=== PATIENT | female | born 1950 | race Caucasian/White ===

== ENCOUNTER 2016-08-09 12:31 | Emergency (ER) | payer MEDICARE, OTHER, SELFPAY ==
[~2016-08-09] VITALS: Ht 162.6 cm; Wt 65.3 kg
[2016-08-09] MEDS ORDERED: ONDANSETRON 2MG/ML, 2ML IVPush ONE (13:00)
[2016-08-09] MEDS ORDERED: MAGNESIUM SULFATE 1 GM, THIAMINE 100 MG, FOLIC ACID 1 MG, MVI ADULT 10 ML in SODIUM CHL... IV ONE (13:00)
[2016-08-09] MEDS ORDERED: SODIUM CHLORIDE 0.9% 1,000ML IVBOLUS ONE (13:00)
[2016-08-09] MEDS ORDERED: LORazepam 2 MG/ML, 1ML IVPush ONE (13:00)
[2016-08-09] MEDS ORDERED: SODIUM CHLORIDE FLUSH 10ML SYR IVF ONE (13:00)
[2016-08-09 13:20] LABS: HEMOGLOBIN 15.5 g/dL (11.7-16.4)
[2016-08-09 13:39] LABS: ASPARTATE AMINO TRANSFERASE 21 U/L (15-37); BLOOD UREA NITROGEN 12 mg/dL (7-18)
[2016-08-09] MEDS ORDERED: LORazepam 1MG TABLET ONE (17:39)
[2016-08-09] MEDS ORDERED: BUPR100T11 PO (17:44)
[2016-08-09] MEDS ORDERED: LISI-170 PO (17:45)
[2016-08-09] MEDS ORDERED: ATOR80TA75 PO (17:46)
[2016-08-09] MEDS ORDERED: FLUO60TA PO (17:47)
[2016-08-09] MEDS ORDERED: OXYB5TAB7 PO (17:47)
[2016-08-09] MEDS ORDERED: CETI-237 PO (17:48)
[2016-08-09] MEDS ORDERED: ACAM333T7 PO (17:50)
[2016-08-09] MEDS ORDERED: BUSP7.5T3 PO (17:56)
[2016-08-09] MEDS ORDERED: LORazepam 1MG TABLET PO ONE (18:00)
[2016-08-09 18:31] VITALS: BP 174/97
== END 2016-08-09 18:35 | disposition home or self-care (01) ==
LOC: ED 18:29
DX: F41.1 Generalized anxiety disorder (principal); E78.5 Hyperlipidemia, unspecified
CPT/HCPCS: 36415; 80053; 80307; 85025; 99284; J2060

== ENCOUNTER 2018-09-04 15:25 | Inpatient (IN) | payer MEDICARE, MEDICAID ==
[~2018-09-04] VITALS: Ht 157.5 cm; Wt 61.6 kg
[~2018-09-04 15:25] MED LIST: ACAM333T7 PO; ATOR-2 PO; BUPR100T11 PO; BUSP7.5T3 PO; CETI-237 PO; FLUO60TA PO; LISI-170 PO; OXYB5TAB7 PO
[2018-09-04] MEDS ORDERED: SODIUM CHLORIDE FLUSH 10ML SYR IVF ONE ×2 (16:00→18:00)
[2018-09-04 16:16] LABS: BASOPHILS # (AUTO) 0.01 x10^3/uL (0-0.1); BASOPHILS % (AUTO) 0 % (0-1); EOSINOPHILS # (AUTO) 0.01 x10^3/uL (0-0.4); EOSINOPHILS % (AUTO) 0 % (1-7); LYMPHOCYTES # (AUTO) 0.88 x10^3/uL (1-3.4); LYMPHOCYTES % (AUTO) 12 % (22-44); MD NO; MEAN CORPUSCULAR HEMOGLOBIN 32.1 pg (27.0-34.8); MEAN CORPUSCULAR HGB CONC 33.9 g/dL (32.4-35.8); MEAN CORPUSCULAR VOLUME 94.8 fL (80-100); MEAN PLATELET VOLUME 7.9 fL (7.4-10.4); MONOCYTES # (AUTO) 0.52 x10^3/uL (0.2-0.8); MONOCYTES % (AUTO) 7 % (2-9); NEUTROPHILS # (AUTO) 6.22 x10^3/uL (1.8-6.8); NEUTROPHILS % (AUTO) 81 % (42-75); PLATELET COUNT 211 x10^3/uL (130-400); RED BLOOD COUNT 4.69 x10^6/uL (3.82-5.3)
[2018-09-04 16:29] LABS: ALBUMIN 3.5 g/dL (3.4-5.0); ANION GAP 19 mmol/L (5-15); CALCIUM 8.4 mg/dL (8.5-10.1); CHLORIDE 102 mmol/L (98-107)
[2018-09-04 16:33] LABS: ALANINE AMINOTRANSFERASE 268 U/L (12-78); ALKALINE PHOSPHATASE 68 U/L (45-117); BILIRUBIN,TOTAL 0.9 mg/dL (0.2-1.0); CREATININE 0.82 mg/dL (0.55-1.02); TOTAL PROTEIN 6.9 g/dL (6.4-8.2)
[2018-09-04] MEDS ORDERED: LORazepam 1MG TABLET ONE (17:14)
[2018-09-04] MEDS ORDERED: LORazepam 1MG TABLET PO ONE (17:30)
[2018-09-04] MEDS ORDERED: THIAMINE 100MG TABLET ONE (18:00)
[2018-09-04] MEDS ORDERED: THIAMINE 100MG TABLET PO ONE (18:00)
[2018-09-04] MEDS ORDERED: SODIUM CHLORIDE 0.9% 1,000ML IVBOLUS ONE (18:00)
[2018-09-04] MEDS ORDERED: LORazepam 2 MG/ML, 1ML ONE ×4 (18:01→19:52)
[2018-09-04] MEDS: LORazepam 2 MG/ML, 1ML IVPush PRN ×5 (18:24→20:49)
--- NOTE | 2018-09-04 18:30 | NUR ---
LATE NOTE ENTRY FOR 173: Pt presents to ED transported by her brother Titus Blake (who she lives with) with c/o tremours and "detoxing off of alcohol." Pt is AOX4, has visible tremors from doorway, skin is pink, warm, and dry, and pt denies nausea or vomiting. Pt denies chest pain, trauma, shortness of breath, or seizure. Pt denies seizure when she has stopped drinking alcohol. Pt's brother states she had been through detox five years ago and was sober, but in last three years began drinking again, and an increase in drinking in the last "few months". Pt states she wants help to stop drinking. Pt connected to conveyor monitor, NIBP, and continous pulse ox. PIV established. Medications provided per EMAR. Pt appreciative. Bedside rails up for safety measures. Call light within reach. Pt states, "I drink a large bottle of vodka and finish it within three days."
--- NOTE | 2018-09-04 18:34 | NUR ---
Provided medications per EMAR. PIV fluids infusing per EMAR. NADN. Pt remains connected to NIBP, continous pulse ox, and rn cardiac. Placed pt on 2L oygen via NC due to SPO2% around 85-88%. On 2L NC pt is at 95%. Pt trying to rest with eyes closed at bedside. Tremors occuring only when patient wakes up and attempts to move. When patient rests tremors will discontinue.
--- NOTE | 2018-09-04 18:58 | NUR ---
Provided bedside report to LARON Cruz. All questions answered. LARON Cruz to assume care of pt.
--- NOTE | 2018-09-04 19:00 | NUR ---
RECEIVED BS REPORT FROM LARON RODRIGUEZ TO ASSUME PT. CARE. PT. RESTING ON GURNEY; REMAINS VERY TREMULOUS. HR IMPROVED. IVF COMPLETED. CALL LIGHT IN REACH. ALL MONITORS IN PLACE. ALL SAFETY MEASURES OBSERVED.
--- NOTE | 2018-09-04 19:34 | NUR ---
THIS RN ENTERED ROOM PT. WAS SHOUTING FOR HELP. PT. REQUESTING TO WALK TO . PT. VERY TERMULOUS AND UNABLE TO EVEN STAND AT TO TRANSFER TO COMMODE. PT. PLACED ON BED SOLIZ AND DR. OLVERA WAS BACK IN TO EVAL PT. AND DISCUSS PLAN FOR ADMISSION. PT. MEDICATED PER JUN AND ALL MONITORS REPLACED. CALL LIGHT IN REACH AND PT. RE-EDUCATED ON USE OF CALL LIGHT FOR ASSISTANCE. FAMILY ARRIVED AT FOR SUPPORT. ALL SAFETY MEASUERS OBSERVED.
--- NOTE | 2018-09-04 19:58 | NUR ---
PT. REMAINS VERY TERMULOUS. VS UPDATED AND PT. MEDICATED PER JUN. [facility] IN TO EVAL PT. FOR ADMISSION. PT. HAS ALL MONITORS IN PLACE. CALL LIGHT IN REACH. ALL SAFETY MEASUERS OBSERVED.
--- NOTE | 2018-09-04 20:05 | NUR ---
REPORT TO LARON LOVE. FLOOR READY FOR PT. TRANSPORT.
[2018-09-04] MEDS ORDERED: BISACODYL 10 MG SUPP PR PRN (20:30)
[2018-09-04] MEDS ORDERED: ONDANSETRON 2MG/ML, 2ML IVPush PRN (20:30)
[2018-09-04] MEDS ORDERED: POLYETHYLENE GLYCOL 17 GM PACKET PO PRN (20:30)
[2018-09-04] MEDS ORDERED: hydrALAzine 20 MG/ML, 1ML IVPush PRN (20:30)
[2018-09-04 20:54] VITALS: BP 149/81
[2018-09-04] MEDS: ATORVASTATIN 40 MG TABLET PO SCH (21:56)
[2018-09-04] MEDS: HEPARIN 5,000 UNITS/ML, 1ML SQ SCH (21:57)
[2018-09-04] MEDS: LISINOPRIL 20 MG TABLET PO SCH (21:57)
[2018-09-04] MEDS: BUSPIRONE 10 MG TABLET PO SCH (21:57)
[2018-09-04] MEDS: CHLORDIAZEPOXIDE 25 MG CAPSULE PO PRN (22:01)
[2018-09-05] MEDS: LORazepam 2 MG/ML, 1ML IVPush PRN ×3 (00:26→06:06)
[2018-09-05 02:21] VITALS: BP 148/90
[2018-09-05] MEDS: ACETAMINOPHEN 325 MG TABLET PO PRN (03:54)
[2018-09-05] MEDS: HEPARIN 5,000 UNITS/ML, 1ML SQ SCH ×3 (04:49→20:59)
[2018-09-05] MEDS: CHLORDIAZEPOXIDE 25 MG CAPSULE PO PRN (04:50)
[2018-09-05 04:52] LABS: BASOPHILS # (AUTO) 0.02 x10^3/uL (0-0.1); BASOPHILS % (AUTO) 0 % (0-1); EOSINOPHILS # (AUTO) 0.03 x10^3/uL (0-0.4); EOSINOPHILS % (AUTO) 0 % (1-7); LYMPHOCYTES # (AUTO) 1.01 x10^3/uL (1-3.4); LYMPHOCYTES % (AUTO) 14 % (22-44); MD NO; MEAN CORPUSCULAR HEMOGLOBIN 32.3 pg (27.0-34.8); MEAN CORPUSCULAR HGB CONC 34.3 g/dL (32.4-35.8); MEAN CORPUSCULAR VOLUME 94.4 fL (80-100); MEAN PLATELET VOLUME 7.9 fL (7.4-10.4); MONOCYTES # (AUTO) 0.55 x10^3/uL (0.2-0.8); MONOCYTES % (AUTO) 8 % (2-9); NEUTROPHILS # (AUTO) 5.53 x10^3/uL (1.8-6.8); NEUTROPHILS % (AUTO) 77 % (42-75); PLATELET COUNT 173 x10^3/uL (130-400); RED BLOOD COUNT 4.09 x10^6/uL (3.82-5.3); RED CELL DISTRIBUTION WIDTH 14.9 % (9.6-15.2)
[2018-09-05 05:01] LABS: ALBUMIN 2.8 g/dL (3.4-5.0); ANION GAP 12 mmol/L (5-15); CALCIUM 8.1 mg/dL (8.5-10.1); CHLORIDE 103 mmol/L (98-107)
[2018-09-05 05:05] LABS: ALANINE AMINOTRANSFERASE 185 U/L (12-78); ALKALINE PHOSPHATASE 54 U/L (45-117); BILIRUBIN,TOTAL 1.1 mg/dL (0.2-1.0); CREATININE 0.67 mg/dL (0.55-1.02); TOTAL PROTEIN 5.7 g/dL (6.4-8.2)
[2018-09-05] MEDS ORDERED: LORazepam 2 MG/ML, 1ML IV PRN ×3 (07:30)
[2018-09-05] MEDS ORDERED: LORazepam 1MG TABLET PO PRN ×3 (07:30)
[2018-09-05 08:37] VITALS: BP 165/106
[2018-09-05] MEDS: SENNA/DOCUSATE TABLET PO SCH (09:00)
[2018-09-05] MEDS: BUSPIRONE 10 MG TABLET PO SCH ×3 (09:59→20:59)
[2018-09-05] MEDS: MULTIVITAMINS/MINERALS TABLET PO SCH (09:59)
[2018-09-05] MEDS: FOLIC ACID 1 MG TABLET PO SCH (09:59)
[2018-09-05] MEDS: THIAMINE 100MG TABLET PO SCH ×2 (09:59→20:59)
[2018-09-05] MEDS: LISINOPRIL 20 MG TABLET PO SCH ×2 (09:59→20:59)
[2018-09-05] MEDS: LORazepam 0.5MG TABLET PO PRN (09:59)
[2018-09-05] MEDS: FLUOXETINE HCL 20 MG CAPSULE PO SCH (09:59)
[2018-09-05] MEDS: CHLORDIAZEPOXIDE 25 MG CAPSULE PO SCH ×3 (10:00→20:59)
[2018-09-05 13:20] VITALS: BP 166/99
[2018-09-05] MEDS: LORazepam 2 MG/ML, 1ML IV PRN ×2 (14:40→20:02)
[2018-09-05] MEDS: SODIUM CHLORIDE 0.45% 1,000 ML IV SCH ×2 (14:42→21:00)
[2018-09-05 18:24] VITALS: BP 185/96
[2018-09-05] MEDS ORDERED: MAGNESIUM SULFATE 4 GM in SODIUM CHLORIDE 0.9% 100 ML IV ONE (20:30)
[2018-09-05] MEDS: ATORVASTATIN 40 MG TABLET PO SCH (21:00)
[2018-09-05 22:22] VITALS: BP 152/84
[2018-09-06 00:04] VITALS: BP 159/91
[2018-09-06] MEDS: SODIUM CHLORIDE 0.45% 1,000 ML IV SCH ×2 (04:09→13:30)
[2018-09-06] MEDS: LORazepam 1MG TABLET PO PRN ×2 (04:09→18:04)
[2018-09-06] MEDS: HEPARIN 5,000 UNITS/ML, 1ML SQ SCH ×3 (04:10→20:26)
[2018-09-06 05:12] LABS: BASOPHILS # (AUTO) 0.01 x10^3/uL (0-0.1); BASOPHILS % (AUTO) 0 % (0-1); EOSINOPHILS # (AUTO) 0.04 x10^3/uL (0-0.4); EOSINOPHILS % (AUTO) 1 % (1-7); LYMPHOCYTES # (AUTO) 0.72 x10^3/uL (1-3.4); LYMPHOCYTES % (AUTO) 9 % (22-44); MD NO; MEAN CORPUSCULAR HEMOGLOBIN 32.5 pg (27.0-34.8); MEAN CORPUSCULAR HGB CONC 34.4 g/dL (32.4-35.8); MEAN CORPUSCULAR VOLUME 94.5 fL (80-100); MEAN PLATELET VOLUME 8.2 fL (7.4-10.4); MONOCYTES # (AUTO) 0.72 x10^3/uL (0.2-0.8); MONOCYTES % (AUTO) 9 % (2-9); NEUTROPHILS # (AUTO) 6.84 x10^3/uL (1.8-6.8); NEUTROPHILS % (AUTO) 82 % (42-75); PLATELET COUNT 170 x10^3/uL (130-400); RED BLOOD COUNT 4.33 x10^6/uL (3.82-5.3); RED CELL DISTRIBUTION WIDTH 14.8 % (9.6-15.2)
[2018-09-06 05:21] LABS: CHLORIDE 95 mmol/L (98-107)
[2018-09-06 05:31] LABS: ALANINE AMINOTRANSFERASE 134 U/L (12-78); ALBUMIN 2.8 g/dL (3.4-5.0); ALKALINE PHOSPHATASE 62 U/L (45-117); ANION GAP 13 mmol/L (5-15); BILIRUBIN,TOTAL 0.9 mg/dL (0.2-1.0); CALCIUM 7.8 mg/dL (8.5-10.1); CREATININE 0.53 mg/dL (0.55-1.02); TOTAL PROTEIN 5.8 g/dL (6.4-8.2)
[2018-09-06] MEDS ORDERED: POTASSIUM CHLORIDE 20 MEQ TAB.ER.PRT PO ONE ×2 (07:00→11:00)
[2018-09-06] MEDS ORDERED: POTASSIUM CHLORIDE 20 MEQ PACKET PO ONE (07:30)
[2018-09-06] MEDS ORDERED: SODIUM CHLORIDE 0.45% 1,000 ML IV SCH (08:00)
[2018-09-06] MEDS: THIAMINE 100MG TABLET PO SCH ×2 (08:54→20:23)
[2018-09-06] MEDS: BUSPIRONE 10 MG TABLET PO SCH ×2 (08:54→18:04)
[2018-09-06] MEDS: FLUOXETINE HCL 20 MG CAPSULE PO SCH (08:54)
[2018-09-06] MEDS: FOLIC ACID 1 MG TABLET PO SCH (08:54)
[2018-09-06] MEDS: CHLORDIAZEPOXIDE 25 MG CAPSULE PO SCH ×2 (08:54→20:30)
[2018-09-06] MEDS: LISINOPRIL 20 MG TABLET PO SCH ×2 (08:55→20:24)
[2018-09-06] MEDS: MULTIVITAMINS/MINERALS TABLET PO SCH (08:55)
[2018-09-06] MEDS: SENNA/DOCUSATE TABLET PO SCH (09:00)
[2018-09-06 09:06] VITALS: BP 133/77
[2018-09-06 15:24] VITALS: BP 105/75
[2018-09-06] MEDS ORDERED: SODIUM CHLORIDE 0.9% 1,000 ML IV SCH (17:30)
[2018-09-06] MEDS: POTASSIUM CHLORIDE 20 MEQ, MAGNESIUM SULFATE 1 GM, FOLIC ACID 1 MG, THIAMINE 200 MG, MV... IV SCH (18:04)
[2018-09-06 20:15] VITALS: BP 152/95
[2018-09-06] MEDS: ATORVASTATIN 40 MG TABLET PO SCH (20:23)
[2018-09-06] MEDS: LORazepam 2 MG/ML, 1ML IV PRN (21:14)
[2018-09-07] MEDS: BUSPIRONE 10 MG TABLET PO SCH ×4 (00:03→21:15)
[2018-09-07] MEDS: LORazepam 2 MG/ML, 1ML IV PRN ×5 (02:02→22:28)
[2018-09-07 03:03] VITALS: BP 138/82
[2018-09-07] MEDS: HEPARIN 5,000 UNITS/ML, 1ML SQ SCH ×3 (05:26→21:16)
[2018-09-07] MEDS: SENNA/DOCUSATE TABLET PO SCH (09:00)
[2018-09-07] MEDS: LORazepam 0.5MG TABLET PO PRN ×2 (09:29→14:18)
[2018-09-07] MEDS: FLUOXETINE HCL 20 MG CAPSULE PO SCH (09:30)
[2018-09-07] MEDS: THIAMINE 100MG TABLET PO SCH ×2 (09:30→21:15)
[2018-09-07] MEDS: FOLIC ACID 1 MG TABLET PO SCH (09:30)
[2018-09-07] MEDS: MULTIVITAMINS/MINERALS TABLET PO SCH (09:30)
[2018-09-07] MEDS: CHLORDIAZEPOXIDE 25 MG CAPSULE PO SCH ×3 (09:30→21:15)
[2018-09-07 09:33] VITALS: BP 148/87
[2018-09-07] MEDS: LISINOPRIL 20 MG TABLET PO SCH ×2 (10:08→21:15)
[2018-09-07 12:51] VITALS: BP 136/88
[2018-09-07] MEDS ORDERED: SODIUM CHLORIDE 0.9% 1,000 ML IV SCH (17:30)
[2018-09-07] MEDS: POTASSIUM CHLORIDE 20 MEQ, MAGNESIUM SULFATE 1 GM, FOLIC ACID 1 MG, THIAMINE 200 MG, MV... IV SCH (18:21)
[2018-09-07] MEDS: LORazepam 1MG TABLET PO PRN (18:21)
[2018-09-07 19:41] VITALS: BP 153/92
[2018-09-07] MEDS: ATORVASTATIN 40 MG TABLET PO SCH (21:15)
[2018-09-08 01:13] VITALS: BP 152/91
[2018-09-08] MEDS: LORazepam 2 MG/ML, 1ML IV PRN ×4 (01:19→11:05)
[2018-09-08] MEDS: HEPARIN 5,000 UNITS/ML, 1ML SQ SCH ×3 (05:12→21:45)
[2018-09-08 07:22] LABS: ALBUMIN 2.5 g/dL (3.4-5.0); ANION GAP 9 mmol/L (5-15); CHLORIDE 102 mmol/L (98-107)
[2018-09-08 07:24] LABS: CREATININE 0.55 mg/dL (0.55-1.02)
[2018-09-08 07:25] LABS: ALANINE AMINOTRANSFERASE 110 U/L (12-78); ALKALINE PHOSPHATASE 63 U/L (45-117); BILIRUBIN,TOTAL 0.5 mg/dL (0.2-1.0); TOTAL PROTEIN 5.3 g/dL (6.4-8.2)
[2018-09-08] MEDS: POTASSIUM CHLORIDE 20 MEQ TAB.ER.PRT PO SCH ×2 (08:00→16:45)
[2018-09-08 08:33] VITALS: BP 143/81
[2018-09-08] MEDS: MULTIVITAMINS/MINERALS TABLET PO SCH (09:00)
[2018-09-08] MEDS: FOLIC ACID 1 MG TABLET PO SCH (09:00)
[2018-09-08] MEDS: SENNA/DOCUSATE TABLET PO SCH (09:00)
[2018-09-08] MEDS: THIAMINE 100MG TABLET PO SCH (09:00)
[2018-09-08] MEDS: POTASSIUM CHLORIDE 20 MEQ, MAGNESIUM SULFATE 1 GM, THIAMINE 200 MG, FOLIC ACID 1 MG, MV... IV SCH (10:16)
[2018-09-08] MEDS: BUSPIRONE 10 MG TABLET PO SCH ×3 (11:02→21:45)
[2018-09-08] MEDS: LISINOPRIL 20 MG TABLET PO SCH ×2 (11:02→21:46)
[2018-09-08] MEDS: CHLORDIAZEPOXIDE 25 MG CAPSULE PO SCH ×3 (11:03→21:46)
[2018-09-08] MEDS: FLUOXETINE HCL 20 MG CAPSULE PO SCH (11:03)
[2018-09-08 14:12] LABS: THYROID STIMULATING HORMONE 1.08 mIU/L (0.358-3.740)
[2018-09-08 14:14] VITALS: BP 150/87
--- NOTE | 2018-09-08 16:47 | NUR ---
REC: Regular diet with thin liquids Addendum: 09/08/18 at 1647 by Stephanie MERCHANT Amended: Links added.
[2018-09-08 20:36] VITALS: BP 120/76
[2018-09-08] MEDS: ATORVASTATIN 40 MG TABLET PO SCH (21:46)
[2018-09-09 02:25] VITALS: BP 137/76
[2018-09-09 03:45] LABS: MICROSCOPIC INDICATED
[2018-09-09 03:51] LABS: CULTURE INDICATED? YES
[2018-09-09 04:50] LABS: ALANINE AMINOTRANSFERASE 115 U/L (12-78); ALBUMIN 2.5 g/dL (3.4-5.0); ANION GAP 7 mmol/L (5-15); CALCIUM 8.3 mg/dL (8.5-10.1); CHLORIDE 106 mmol/L (98-107); CREATININE 0.66 mg/dL (0.55-1.02)
[2018-09-09 04:53] LABS: ALKALINE PHOSPHATASE 64 U/L (45-117); BILIRUBIN,TOTAL 0.4 mg/dL (0.2-1.0); TOTAL PROTEIN 5.4 g/dL (6.4-8.2)
[2018-09-09] MEDS: HEPARIN 5,000 UNITS/ML, 1ML SQ SCH (05:44)
[2018-09-09 08:00] VITALS: BP 125/84
[2018-09-09] MEDS: ENOXAPARIN 40 MG/0.4 ML SQ SCH (08:59)
[2018-09-09] MEDS: CHLORDIAZEPOXIDE 25 MG CAPSULE PO SCH ×4 (08:59→22:35)
[2018-09-09] MEDS: BUSPIRONE 10 MG TABLET PO SCH ×3 (08:59→20:26)
[2018-09-09] MEDS: FLUOXETINE HCL 20 MG CAPSULE PO SCH (09:00)
[2018-09-09] MEDS: SENNA/DOCUSATE TABLET PO SCH (09:00)
[2018-09-09] MEDS: LISINOPRIL 20 MG TABLET PO SCH ×2 (09:00→20:27)
[2018-09-09] MEDS: POTASSIUM CHLORIDE 20 MEQ TAB.ER.PRT PO SCH ×2 (09:00→17:00)
[2018-09-09 10:38] LABS: CLOSTRIDIUM DIFFICILE ANTIGEN NEGATIVE; CLOSTRIDIUM DIFFICILE TOXIN NEGATIVE (Negative)
[2018-09-09] MEDS: POTASSIUM CHLORIDE 20 MEQ, MAGNESIUM SULFATE 1 GM, THIAMINE 200 MG, FOLIC ACID 1 MG, MV... IV SCH (11:03)
[2018-09-09] MEDS ORDERED: LOPERAMIDE 2 MG CAPSULE PO PRN (12:00)
[2018-09-09] MEDS: MULTIVITAMIN 1 TABLET PO SCH (13:04)
[2018-09-09] MEDS: THIAMINE 100MG TABLET PO SCH (13:04)
[2018-09-09] MEDS: FOLIC ACID 1 MG TABLET PO SCH (13:04)
[2018-09-09 13:10] VITALS: BP 141/89
[2018-09-09 19:45] VITALS: BP 123/78
[2018-09-09] MEDS: ATORVASTATIN 40 MG TABLET PO SCH (20:26)
[2018-09-10] MEDS: ACETAMINOPHEN 325 MG TABLET PO PRN ×2 (00:35→20:06)
[2018-09-10 02:20] VITALS: BP 146/82
[2018-09-10 07:15] VITALS: BP 137/82
[2018-09-10] MEDS: FLUOXETINE HCL 20 MG CAPSULE PO SCH (08:45)
[2018-09-10] MEDS: POTASSIUM CHLORIDE 20 MEQ TAB.ER.PRT PO SCH ×2 (08:45→17:53)
[2018-09-10] MEDS: LISINOPRIL 20 MG TABLET PO SCH ×2 (08:45→20:05)
[2018-09-10] MEDS: ENOXAPARIN 40 MG/0.4 ML SQ SCH (08:45)
[2018-09-10] MEDS: BUSPIRONE 10 MG TABLET PO SCH ×3 (08:45→20:06)
[2018-09-10] MEDS: MULTIVITAMIN 1 TABLET PO SCH (08:46)
[2018-09-10] MEDS: THIAMINE 100MG TABLET PO SCH (08:46)
[2018-09-10] MEDS: FOLIC ACID 1 MG TABLET PO SCH (08:46)
[2018-09-10] MEDS: SENNA/DOCUSATE TABLET PO SCH (08:47)
[2018-09-10 13:50] VITALS: BP 135/70
[2018-09-10] MEDS ORDERED: LORazepam 0.5MG TABLET PO PRN (14:30)
[2018-09-10] MEDS ORDERED: CEFTRIAXONE PMX 1GM/50ML 50 ML IV SCH (15:00)
[2018-09-10 19:25] VITALS: BP 137/82
[2018-09-10] MEDS: LORazepam 0.5MG TABLET PO PRN (20:06)
[2018-09-10] MEDS: ATORVASTATIN 40 MG TABLET PO SCH (20:06)
[2018-09-11 01:23] VITALS: BP 154/92
[2018-09-11] MEDS: LORazepam 0.5MG TABLET PO PRN ×3 (03:42→19:10)
[2018-09-11] MEDS: ENOXAPARIN 40 MG/0.4 ML SQ SCH (07:48)
[2018-09-11] MEDS: CEFDINIR 300 MG CAPSULE PO SCH ×2 (07:48→21:15)
[2018-09-11] MEDS: BUSPIRONE 10 MG TABLET PO SCH ×3 (07:48→21:15)
[2018-09-11] MEDS: THIAMINE 100MG TABLET PO SCH (07:49)
[2018-09-11] MEDS: ACETAMINOPHEN 325 MG TABLET PO PRN ×2 (07:49→22:41)
[2018-09-11] MEDS: FOLIC ACID 1 MG TABLET PO SCH (07:49)
[2018-09-11] MEDS: LISINOPRIL 20 MG TABLET PO SCH ×2 (07:49→21:14)
[2018-09-11] MEDS: MULTIVITAMIN 1 TABLET PO SCH (07:49)
[2018-09-11] MEDS: SENNA/DOCUSATE TABLET PO SCH (07:49)
[2018-09-11] MEDS: FLUOXETINE HCL 20 MG CAPSULE PO SCH (07:49)
[2018-09-11] MEDS: POTASSIUM CHLORIDE 20 MEQ TAB.ER.PRT PO SCH ×2 (07:49→16:11)
[2018-09-11 08:17] VITALS: BP 148/88
[2018-09-11 12:44] VITALS: BP 132/83
[2018-09-11 18:36] VITALS: BP 136/90
[2018-09-11] MEDS: ATORVASTATIN 40 MG TABLET PO SCH (21:14)
[2018-09-12 01:58] VITALS: BP 136/88
[2018-09-12 06:47] VITALS: BP 131/83
[2018-09-12] MEDS: ENOXAPARIN 40 MG/0.4 ML SQ SCH (07:50)
[2018-09-12] MEDS: CEFDINIR 300 MG CAPSULE PO SCH ×2 (07:51→19:56)
[2018-09-12] MEDS: LISINOPRIL 20 MG TABLET PO SCH ×2 (07:51→19:56)
[2018-09-12] MEDS: SENNA/DOCUSATE TABLET PO SCH (07:51)
[2018-09-12] MEDS: FLUOXETINE HCL 20 MG CAPSULE PO SCH (07:51)
[2018-09-12] MEDS: LORazepam 0.5MG TABLET PO PRN ×2 (07:51→14:32)
[2018-09-12] MEDS: THIAMINE 100MG TABLET PO SCH (07:51)
[2018-09-12] MEDS: MULTIVITAMIN 1 TABLET PO SCH (07:51)
[2018-09-12] MEDS: FOLIC ACID 1 MG TABLET PO SCH (07:51)
[2018-09-12] MEDS: BUSPIRONE 10 MG TABLET PO SCH ×3 (07:51→19:56)
[2018-09-12] MEDS ORDERED: POTASSIUM CHLORIDE 20 MEQ TAB.ER.PRT PO SCH (09:00)
[2018-09-12 12:24] VITALS: BP 157/97
[2018-09-12 18:30] VITALS: BP 121/76
[2018-09-12] MEDS: ATORVASTATIN 40 MG TABLET PO SCH (19:56)
[2018-09-13 01:08] VITALS: BP 147/90
[2018-09-13 07:13] VITALS: BP 162/91
[2018-09-13] MEDS: SENNA/DOCUSATE TABLET PO SCH (09:00)
[2018-09-13] MEDS: LISINOPRIL 20 MG TABLET PO SCH ×2 (09:13→20:01)
[2018-09-13] MEDS: BUSPIRONE 10 MG TABLET PO SCH ×3 (09:13→20:01)
[2018-09-13] MEDS: MULTIVITAMIN 1 TABLET PO SCH (09:13)
[2018-09-13] MEDS: FLUOXETINE HCL 20 MG CAPSULE PO SCH (09:13)
[2018-09-13] MEDS: AMLODIPINE 5 MG TABLET PO SCH ×2 (09:13→20:01)
[2018-09-13] MEDS: CEFDINIR 300 MG CAPSULE PO SCH ×2 (09:13→20:01)
[2018-09-13] MEDS: FOLIC ACID 1 MG TABLET PO SCH (09:14)
[2018-09-13] MEDS: ENOXAPARIN 40 MG/0.4 ML SQ SCH (09:14)
[2018-09-13] MEDS: THIAMINE 100MG TABLET PO SCH (09:14)
[2018-09-13 12:15] VITALS: BP 157/83
[2018-09-13] MEDS ORDERED: CETIRIZINE 10 MG TABLET PO PRN (12:30)
[2018-09-13] MEDS: LORazepam 0.5MG TABLET PO PRN ×2 (13:17→20:57)
[2018-09-13 19:02] VITALS: BP 130/76
[2018-09-13] MEDS: ATORVASTATIN 40 MG TABLET PO SCH (20:01)
[2018-09-14 00:36] VITALS: BP 150/82
[2018-09-14] MEDS: ACETAMINOPHEN 325 MG TABLET PO PRN (01:50)
[2018-09-14] MEDS: LORazepam 0.5MG TABLET PO PRN ×4 (03:14→23:40)
[2018-09-14 06:44] LABS: CREATININE 0.62 mg/dL (0.55-1.02)
[2018-09-14 07:38] VITALS: BP 164/82
[2018-09-14] MEDS: ENOXAPARIN 40 MG/0.4 ML SQ SCH (08:31)
[2018-09-14] MEDS: FLUOXETINE HCL 20 MG CAPSULE PO SCH (08:32)
[2018-09-14] MEDS: CEFDINIR 300 MG CAPSULE PO SCH ×2 (08:32→20:39)
[2018-09-14] MEDS: MULTIVITAMIN 1 TABLET PO SCH (08:32)
[2018-09-14] MEDS: AMLODIPINE 5 MG TABLET PO SCH ×2 (08:32→20:39)
[2018-09-14] MEDS: LISINOPRIL 20 MG TABLET PO SCH ×2 (08:32→20:38)
[2018-09-14] MEDS: FOLIC ACID 1 MG TABLET PO SCH (08:32)
[2018-09-14] MEDS: THIAMINE 100MG TABLET PO SCH (08:32)
[2018-09-14] MEDS: SENNA/DOCUSATE TABLET PO SCH (08:33)
[2018-09-14] MEDS: BUSPIRONE 10 MG TABLET PO SCH ×3 (08:34→20:38)
[2018-09-14 13:15] VITALS: BP 134/77
[2018-09-14 20:25] VITALS: BP 150/84
[2018-09-14] MEDS: ATORVASTATIN 40 MG TABLET PO SCH (20:38)
[2018-09-15 00:09] VITALS: BP 163/95
[2018-09-15] MEDS: LORazepam 0.5MG TABLET PO PRN ×3 (07:15→22:55)
[2018-09-15] MEDS: ENOXAPARIN 40 MG/0.4 ML SQ SCH (08:58)
[2018-09-15] MEDS: MULTIVITAMIN 1 TABLET PO SCH (08:58)
[2018-09-15] MEDS: FOLIC ACID 1 MG TABLET PO SCH (08:58)
[2018-09-15] MEDS: FLUOXETINE HCL 20 MG CAPSULE PO SCH (08:58)
[2018-09-15] MEDS: THIAMINE 100MG TABLET PO SCH (08:58)
[2018-09-15] MEDS: CEFDINIR 300 MG CAPSULE PO SCH ×2 (08:58→21:20)
[2018-09-15] MEDS: LISINOPRIL 20 MG TABLET PO SCH ×2 (08:58→21:20)
[2018-09-15] MEDS: BUSPIRONE 10 MG TABLET PO SCH ×3 (08:58→21:20)
[2018-09-15] MEDS: AMLODIPINE 5 MG TABLET PO SCH ×2 (08:58→21:20)
[2018-09-15] MEDS: HYDROCHLOROTHIAZIDE 25 MG TABLET PO SCH (08:58)
[2018-09-15] MEDS: SENNA/DOCUSATE TABLET PO SCH (08:58)
[2018-09-15 09:49] VITALS: BP 115/73
[2018-09-15 13:44] VITALS: BP 119/77
[2018-09-15 18:34] VITALS: BP 119/75
[2018-09-15 21:19] VITALS: BP 122/79
[2018-09-15] MEDS: ATORVASTATIN 40 MG TABLET PO SCH (21:20)
[2018-09-16] MEDS: ACETAMINOPHEN 325 MG TABLET PO PRN (00:20)
[2018-09-16 03:13] VITALS: BP 139/80
[2018-09-16] MEDS ORDERED: AMLO-150 PO (07:19)
[2018-09-16] MEDS ORDERED: MULT1TAB60 PO (07:19)
[2018-09-16] MEDS ORDERED: CEFD300C37 PO (07:19)
[2018-09-16] MEDS ORDERED: THIA100T67 PO (07:19)
[2018-09-16] MEDS ORDERED: FOLI-17 PO (07:19)
[2018-09-16 07:35] VITALS: BP 157/90
[2018-09-16] MEDS: SENNA/DOCUSATE TABLET PO SCH (07:39)
[2018-09-16] MEDS: MULTIVITAMIN 1 TABLET PO SCH (09:24)
[2018-09-16] MEDS: BUSPIRONE 10 MG TABLET PO SCH (09:24)
[2018-09-16] MEDS: CEFDINIR 300 MG CAPSULE PO SCH (09:24)
[2018-09-16] MEDS: THIAMINE 100MG TABLET PO SCH (09:24)
[2018-09-16] MEDS: AMLODIPINE 5 MG TABLET PO SCH (09:24)
[2018-09-16] MEDS: HYDROCHLOROTHIAZIDE 25 MG TABLET PO SCH (09:24)
[2018-09-16] MEDS: LISINOPRIL 20 MG TABLET PO SCH (09:24)
[2018-09-16] MEDS: FLUOXETINE HCL 20 MG CAPSULE PO SCH (09:24)
[2018-09-16] MEDS: FOLIC ACID 1 MG TABLET PO SCH (09:24)
[2018-09-16] MEDS: ENOXAPARIN 40 MG/0.4 ML SQ SCH (09:25)
[2018-09-16] MEDS: LORazepam 0.5MG TABLET PO PRN (09:52)
== END 2018-09-16 13:15 | disposition home or self-care (01) | DRG 872 ==
LOC: ED 18:31 → EDIP 20:02 → 4EST 20:39 → 4WST 09-08 02:10 → 4EST 09-08 02:11
PROVIDERS: ADMIT Internal Medicine; ATTEND Internal Medicine
DX: A41.9 Sepsis, unspecified organism (principal); N39.0 Urinary tract infection, site not specified; E87.2 Acidosis; E87.1 Hypo-osmolality and hyponatremia; F10.230 Alcohol dependence with withdrawal, uncomplicated; K70.10 Alcoholic hepatitis without ascites; R00.0 Tachycardia, unspecified; I10 Essential (primary) hypertension; F32.9 Major depressive disorder, single episode, unspecified; E87.6 Hypokalemia; B96.20 Unspecified Escherichia coli [E. coli] as the cause of diseases classified elsewhere; E11.9 Type 2 diabetes mellitus without complications; E78.5 Hyperlipidemia, unspecified; E83.42 Hypomagnesemia; E86.0 Dehydration; F10.220 Alcohol dependence with intoxication, uncomplicated; Y90.9 Presence of alcohol in blood, level not specified; F41.9 Anxiety disorder, unspecified; G25.0 Essential tremor; Z51.5 Encounter for palliative care; Z87.891 Personal history of nicotine dependence; Z91.81 History of falling; Z90.89 Acquired absence of other organs
CPT/HCPCS: 36415; 71045; 80053; 80074; 80307; 81001; 82140; 82565; 82607; 83735; 84100; 84443; 85025; 87040; 87077; 87086; 87186; 87324; 93005; 99285; G0378; J0696; J1644; J1650; J3411; J3475; J3480; 92522-GN; J0360; J2060; J7030; J7121

== ENCOUNTER 2019-09-26 21:54 | Observation (INO) | payer MEDICARE, MEDICAID ==
[~2019-09-26] VITALS: Ht 160 cm; Wt 59.3 kg
[~2019-09-26 21:54] MED LIST changes: +AMLO-150 PO; +CEFD300C37 PO; +FOLI-17 PO; +MULT1TAB60 PO; +OXYB5TAB10 PO; -OXYB5TAB7 PO; +THIA100T67 PO
[2019-09-26] MEDS ORDERED: THIAMINE 100MG TABLET ONE (22:16)
[2019-09-26] MEDS ORDERED: LORazepam 2 MG/ML, 1ML ONE (22:16)
[2019-09-26] MEDS ORDERED: DIAZEPAM 5 MG TABLET ONE (22:16)
[2019-09-26] MEDS ORDERED: SODIUM CHLORIDE 0.9% 1,000ML IVBOLUS ONE (22:30)
[2019-09-26] MEDS ORDERED: DIAZEPAM 5 MG TABLET PO ONE (22:30)
[2019-09-26] MEDS ORDERED: THIAMINE 100MG TABLET PO ONE (22:30)
[2019-09-26] MEDS ORDERED: ONDANSETRON ODT 4 MG PO ONE (22:30)
[2019-09-26] MEDS ORDERED: SODIUM CHLORIDE FLUSH 10ML SYR IVF ONE (22:30)
[2019-09-26] MEDS ORDERED: LORazepam 2 MG/ML, 1ML IVPush ONE ×2 (22:30→23:30)
[2019-09-26 22:31] LABS: BASOPHILS # (AUTO) 0.03 x10^3/uL (0-0.1); BASOPHILS % (AUTO) 0 % (0-1); EOSINOPHILS # (AUTO) 0.01 x10^3/uL (0-0.4); EOSINOPHILS % (AUTO) 0 % (1-7); LYMPHOCYTES # (AUTO) 1.18 x10^3/uL (1-3.4); LYMPHOCYTES % (AUTO) 16 % (22-44); MD NO; MEAN CORPUSCULAR HEMOGLOBIN 30.8 pg (27.0-34.8); MEAN CORPUSCULAR HGB CONC 33.2 g/dL (32.4-35.8); MEAN CORPUSCULAR VOLUME 92.6 fL (80-100); MEAN PLATELET VOLUME 6.9 fL (7.4-10.4); MONOCYTES # (AUTO) 0.62 x10^3/uL (0.2-0.8); MONOCYTES % (AUTO) 9 % (2-9); NEUTROPHILS # (AUTO) 5.37 x10^3/uL (1.8-6.8); NEUTROPHILS % (AUTO) 74 % (42-75); PLATELET COUNT 353 x10^3/uL (130-400); RED CELL DISTRIBUTION WIDTH 14.4 % (9.6-15.2)
--- NOTE | 2019-09-26 22:34 | NUR ---
Patient BIB [facility] c/o tremors since this am and gradually getting worse throughout the day. Patient states she is anxious and slightly dizzy. Denies nausea or pain. Patient has obvious tremors. Patient has a hx of ETOH abuse; she states her last drink was a couple weeks ago. Respirations even and unlabored.
[2019-09-26 22:42] LABS: ALANINE AMINOTRANSFERASE 32 U/L (12-78); ALBUMIN 3.7 g/dL (3.4-5.0); ANION GAP 10 mmol/L (5-15); CALCIUM 8.9 mg/dL (8.5-10.1); CHLORIDE 91 mmol/L (98-107); CREATININE 0.85 mg/dL (0.55-1.02)
[2019-09-26 22:44] LABS: ALKALINE PHOSPHATASE 70 U/L (45-117); BILIRUBIN,TOTAL 0.7 mg/dL (0.2-1.0); TOTAL PROTEIN 7.1 g/dL (6.4-8.2)
--- NOTE | 2019-09-26 23:26 | NUR ---
Patient continues to be tremulous and stating that she is anxious and nervous.
[2019-09-26] MEDS ORDERED: CHLORDIAZEPOXIDE 25 MG CAPSULE PO PRN (23:30)
[2019-09-26] MEDS ORDERED: POLYETHYLENE GLYCOL 17 GM PACKET PO PRN (23:30)
[2019-09-26] MEDS ORDERED: LORazepam 2 MG/ML, 1ML IVPush PRN (23:30)
[2019-09-26] MEDS: THIAMINE 100MG TABLET PO SCH (23:30)
[2019-09-26] MEDS ORDERED: BISACODYL 10 MG SUPP PR PRN (23:30)
[2019-09-26] MEDS ORDERED: ONDANSETRON ODT 4 MG PO PRN (23:30)
[2019-09-26] MEDS ORDERED: hydrALAzine 20 MG/ML, 1ML IVPush PRN (23:30)
--- NOTE | 2019-09-27 00:11 | NUR ---
TASK RN: REPORT TO LARON LUNSFORD. PT PREPARED FOR TRANSPORT.
[2019-09-27] MEDS: SODIUM CHLORIDE 0.9% 1,000 ML IV SCH ×2 (01:18→10:17)
[2019-09-27 01:20] VITALS: BP 167/92
[2019-09-27] MEDS: AMLODIPINE 5 MG TABLET PO SCH ×3 (01:29→22:18)
[2019-09-27] MEDS: LISINOPRIL 20 MG TABLET PO SCH ×3 (01:29→22:18)
[2019-09-27] MEDS: BUSPIRONE 10 MG TABLET PO SCH ×4 (01:29→22:17)
[2019-09-27 02:53] LABS: BASOPHILS # (AUTO) 0.03 x10^3/uL (0-0.1); BASOPHILS % (AUTO) 0 % (0-1); EOSINOPHILS # (AUTO) 0.03 x10^3/uL (0-0.4); EOSINOPHILS % (AUTO) 0 % (1-7); LYMPHOCYTES % (AUTO) 21 % (22-44); MD NO; MEAN CORPUSCULAR HEMOGLOBIN 30.7 pg (27.0-34.8); MEAN CORPUSCULAR HGB CONC 33.2 g/dL (32.4-35.8); MEAN CORPUSCULAR VOLUME 92.4 fL (80-100); MONOCYTES # (AUTO) 0.74 x10^3/uL (0.2-0.8); MONOCYTES % (AUTO) 10 % (2-9); NEUTROPHILS # (AUTO) 5.35 x10^3/uL (1.8-6.8); NEUTROPHILS % (AUTO) 69 % (42-75); PLATELET COUNT 341 x10^3/uL (130-400); RED BLOOD COUNT 4.07 x10^6/uL (3.82-5.3); RED CELL DISTRIBUTION WIDTH 14.6 % (9.6-15.2)
[2019-09-27] MEDS ORDERED: LORazepam 2 MG/ML, 1ML IV PRN ×5 (03:00)
[2019-09-27] MEDS ORDERED: LORazepam 0.5MG TABLET PO PRN (03:00)
[2019-09-27] MEDS ORDERED: LORazepam 1MG TABLET PO PRN ×3 (03:00)
[2019-09-27] MEDS: LORazepam 1MG TABLET PO PRN ×2 (03:13→23:17)
[2019-09-27 07:08] VITALS: BP 139/83
[2019-09-27 07:19] LABS: ANION GAP 10 mmol/L (5-15); CALCIUM 8.3 mg/dL (8.5-10.1); CHLORIDE 101 mmol/L (98-107); CREATININE 0.66 mg/dL (0.55-1.02)
[2019-09-27] MEDS: MULTIVITAMIN 1 TABLET PO SCH (10:16)
[2019-09-27] MEDS: ATORVASTATIN 40 MG TABLET PO SCH (10:16)
[2019-09-27] MEDS: THIAMINE 100MG TABLET PO SCH ×2 (10:16→22:17)
[2019-09-27] MEDS: CETIRIZINE 10 MG TABLET PO SCH (10:16)
[2019-09-27] MEDS: FOLIC ACID 1 MG TABLET PO SCH (10:16)
[2019-09-27] MEDS: SENNA/DOCUSATE TABLET PO SCH (10:16)
[2019-09-27] MEDS: FLUOXETINE HCL 20 MG CAPSULE PO SCH (10:17)
[2019-09-27] MEDS: CHLORDIAZEPOXIDE 25 MG CAPSULE PO SCH ×4 (10:23→22:18)
[2019-09-27] MEDS ORDERED: ENOXAPARIN 40 MG/0.4 ML SQ SCH (13:00)
[2019-09-27 13:42] VITALS: BP 132/82
[2019-09-27] MEDS ORDERED: PSEUDOEPHEDRINE 30 MG TABLET PO PRN (16:30)
[2019-09-27 19:22] VITALS: BP 158/97
[2019-09-27] MEDS: FLUTICASONE NASAL SPRAY 16GM NAS SCH (21:00)
[2019-09-28 03:28] VITALS: BP 144/87
[2019-09-28] MEDS: LORazepam 1MG TABLET PO PRN (03:31)
[2019-09-28] MEDS: CHLORDIAZEPOXIDE 25 MG CAPSULE PO SCH (06:03)
[2019-09-28 06:41] VITALS: BP 129/82
[2019-09-28] MEDS: AMLODIPINE 5 MG TABLET PO SCH (08:36)
[2019-09-28] MEDS: MULTIVITAMIN 1 TABLET PO SCH (08:36)
[2019-09-28] MEDS: ATORVASTATIN 40 MG TABLET PO SCH (08:36)
[2019-09-28] MEDS: SENNA/DOCUSATE TABLET PO SCH (08:37)
[2019-09-28] MEDS: BUSPIRONE 10 MG TABLET PO SCH (08:37)
[2019-09-28] MEDS: CETIRIZINE 10 MG TABLET PO SCH (08:37)
[2019-09-28] MEDS: THIAMINE 100MG TABLET PO SCH (08:37)
[2019-09-28] MEDS: FLUOXETINE HCL 20 MG CAPSULE PO SCH (08:37)
[2019-09-28] MEDS: FOLIC ACID 1 MG TABLET PO SCH (08:37)
[2019-09-28] MEDS: LISINOPRIL 20 MG TABLET PO SCH (08:37)
[2019-09-28] MEDS: FLUTICASONE NASAL SPRAY 16GM NAS SCH (08:39)
[2019-09-28] MEDS ORDERED: HYDR-826 PO (10:47)
[2019-09-28] MEDS ORDERED: CHLORDIAZEPOXIDE 25 MG CAPSULE PO SCH (16:00)
== END 2019-09-28 11:17 | disposition home or self-care (01) ==
LOC: ED 23:32 → INTOOBSV 23:52 → EDIP 23:52 → 3N 09-27 00:48
PROVIDERS: ADMIT Family Medicine; ATTEND Hospitalist
DX: F10.239 Alcohol dependence with withdrawal, unspecified (principal); I16.0 Hypertensive urgency; R42 Dizziness and giddiness; E86.0 Dehydration; E87.1 Hypo-osmolality and hyponatremia; I10 Essential (primary) hypertension; E11.9 Type 2 diabetes mellitus without complications; E78.5 Hyperlipidemia, unspecified; F41.8 Other specified anxiety disorders; R94.31 Abnormal electrocardiogram [ECG] [EKG]; R44.3 Hallucinations, unspecified; Z79.899 Other long term (current) drug therapy
CPT/HCPCS: 36415; 80048; 80053; 80307; 84295; 85025; 93005; 96361; 96372; 96374; 96376; 99285; G0378; J1650; J2060; J7030

== ENCOUNTER 2019-11-04 05:14 | Inpatient (IN) | payer MEDICARE, MEDICAID ==
[~2019-11-04] VITALS: Ht 162.6 cm; Wt 47.6 kg
[~2019-11-04 05:14] MED LIST changes: -BUSP7.5T3 PO; +BUSP7.5T5 PO; +HYDR-826 PO; +MULT-449 PO; -MULT1TAB60 PO
[2019-11-04 05:55] LABS: MEAN CORPUSCULAR HGB CONC 33.2 g/dL (32.4-35.8); MEAN PLATELET VOLUME 6.3 fL (7.4-10.4); PLATELET COUNT 631 x10^3/uL (130-400); RED BLOOD COUNT 4.02 x10^6/uL (3.82-5.3); RED CELL DISTRIBUTION WIDTH 14.2 % (9.6-15.2)
--- NOTE | 2019-11-04 05:57 | NUR ---
PT TO CT
--- NOTE | 2019-11-04 06:02 | NUR ---
PT BIB [facility] FOR FREQUENT FALLS AND NOT ACTING LIKE HERSELF PER FAMILY. PT AAOX 3 UPON ARRIVAL AND HAS BRUISING TO FACE. PT CONFUSED TO YEAR. PT HAS HX OF ETOH ABUSE BUT NOT ABLE TO ANSWER QUESTIONS ABOUT HOW MUCH SHE DRINKS. VSS. PIV PLACED AND BLOOD SENT TO LAB. REPORT TO WILLIAM LARRY
[2019-11-04 06:06] LABS: INTERNATIONAL NORMALIZED RATIO 0.93 (0.93-1.1); PROTHROMBIN TIME 9.8 Seconds (9.6-11.5)
[2019-11-04 06:07] LABS: ALBUMIN 3.5 g/dL (3.4-5.0); ANION GAP 9 mmol/L (5-15); CALCIUM 9.1 mg/dL (8.5-10.1); CHLORIDE 78 mmol/L (98-107)
[2019-11-04 06:20] LABS: ALANINE AMINOTRANSFERASE 46 U/L (12-78); ALKALINE PHOSPHATASE 65 U/L (45-117); BILIRUBIN,TOTAL 1.5 mg/dL (0.2-1.0)
[2019-11-04 06:24] LABS: BASOPHILS % (AUTO) 0 % (0-1); EOSINOPHILS # (AUTO) 0.02 x10^3/uL (0-0.4); EOSINOPHILS % (AUTO) 0 % (1-7); LYMPHOCYTES # (AUTO) 0.77 x10^3/uL (1-3.4); LYMPHOCYTES % (AUTO) 5 % (22-44); MD SCAN; MONOCYTES # (AUTO) 1.78 x10^3/uL (0.2-0.8); MONOCYTES % (AUTO) 12 % (2-9); NEUTROPHILS # (AUTO) 11.93 x10^3/uL (1.8-6.8); NEUTROPHILS % (AUTO) 82 % (42-75)
--- NOTE | 2019-11-04 06:25 | NUR ---
PT RESTING ON LORENE UNDER[place]OD PRECAUTIONS IN PLACE AT THIS TIME. CRITICAL LAB REPORTED TO DR. MOISE AT THIS TIME
[2019-11-04] MEDS ORDERED: SODIUM CHLORIDE 3% 500 ML IV PRN ×3 (07:00→10:00)
--- NOTE | 2019-11-04 07:10 | NUR ---
Report recieved from Nemo LARRY
--- NOTE | 2019-11-04 07:35 | NUR ---
URINE COLLECTED, PT RESTING IN BED, SEIZURE PRECAUTIONS IN PLACE
--- NOTE | 2019-11-04 07:55 | NUR ---
verified 3% Na with Anthony in pharmacy- rate 25 ml/hr
--- NOTE | 2019-11-04 08:01 | NUR ---
[facility] MD WALLER AT BEDSIDE FOR EVALUATION
[2019-11-04 08:19] LABS: MICROSCOPIC AUTO
[2019-11-04 08:23] LABS: CHLORIDE,URINE RANDOM 11 mmol/L; POTASSIUM,URINE RANDOM 24 mmol/L; SODIUM,URINE RANDOM 10 mmol/L
--- NOTE | 2019-11-04 09:02 | NUR ---
Pt resting in bed. Call light in reach, seizure precautions in place.
[2019-11-04 09:07] LABS: OSMOLALITY,URINE 503 mOsm/kg (500-850)
[2019-11-04 09:21] LABS: ANION GAP 8 mmol/L (5-15); CALCIUM 8.7 mg/dL (8.5-10.1); CHLORIDE 80 mmol/L (98-107); CREATININE 0.49 mg/dL (0.55-1.02)
[2019-11-04] MEDS ORDERED: PHENOBARBITAL ETOH DETOX PER PHARMACY MC PRN (09:30)
[2019-11-04] MEDS ORDERED: POTASSIUM CHLORIDE 20 MEQ TAB.ER.PRT PO ONE (10:00)
[2019-11-04] MEDS ORDERED: LORazepam 2 MG/ML, 1ML IV PRN ×4 (10:00)
[2019-11-04] MEDS ORDERED: DIAZEPAM 10 MG TABLET PO SCH (10:00)
[2019-11-04] MEDS ORDERED: hydrALAzine 20 MG/ML, 1ML IVPush PRN (10:00)
[2019-11-04] MEDS ORDERED: ONDANSETRON 2MG/ML, 2ML IVPush PRN (10:00)
[2019-11-04] MEDS: CEFTRIAXONE PMX 1GM/50ML 50 ML IV SCH (10:00)
[2019-11-04] MEDS ORDERED: ACETAMINOPHEN 325 MG TABLET PO PRN (10:00)
[2019-11-04] MEDS ORDERED: LORazepam 0.5MG TABLET PO PRN (10:00)
[2019-11-04] MEDS ORDERED: LORazepam 1MG TABLET PO PRN ×3 (10:00)
[2019-11-04] MEDS ORDERED: DIAZEPAM 5 MG/ML, 2ML ONE (10:05)
[2019-11-04] MEDS ORDERED: CEFTRIAXONE PMX 1GM/50ML 50 ML ONE (10:05)
[2019-11-04] MEDS ORDERED: POTASSIUM CHLORIDE 20 MEQ TAB.ER.PRT ONE (10:05)
[2019-11-04] MEDS ORDERED: PANTOPRAZOLE 40 MG IV ONE (10:06)
--- NOTE | 2019-11-04 10:23 | NUR ---
PT PULLED IV AND MONITORS.
[2019-11-04] MEDS: PANTOPRAZOLE 40 MG IV IVPush SCH (10:33)
[2019-11-04] MEDS ORDERED: DIAZEPAM 5 MG TABLET ONE (10:39)
--- NOTE | 2019-11-04 10:52 | NUR ---
RECEIVED REPORT FROM PERLA LARRY. ASSUMING CARE AT THIS TIME.
[2019-11-04] MEDS ORDERED: MAGNESIUM SULFATE PMX 2GM/50ML 50 ML IV ONE (11:00)
--- NOTE | 2019-11-04 11:01 | NUR ---
PT RESTING ON [place]. LONI. SEIZURE PRECAUTIONS IN PLACE.
[2019-11-04] MEDS: THIAMINE 200 MG in DEXTROSE 5% 50 ML IVPB SCH (11:13)
[2019-11-04] MEDS ORDERED: MAGNESIUM SULFATE PMX 2GM/50ML 50 ML ONE (11:33)
[2019-11-04 13:19] LABS: CALCIUM 8.7 mg/dL (8.5-10.1); CHLORIDE 81 mmol/L (98-107); CREATININE 0.56 mg/dL (0.55-1.02)
[2019-11-04 13:21] LABS: ANION GAP 9 mmol/L (5-15)
--- NOTE | 2019-11-04 13:57 | NUR ---
REPORT GIVEN TO NICOLAS LARRY.
[2019-11-04] MEDS: BUSPIRONE 10 MG TABLET PO SCH ×3 (14:30→21:36)
[2019-11-04] MEDS ORDERED: SODIUM CHLORIDE 0.9% IV ONE (14:30)
[2019-11-04] MEDS ORDERED: PHENOBARBITAL SODIUM IV ONE (14:30)
[2019-11-04] MEDS: CETIRIZINE 10 MG TABLET PO SCH (14:30)
[2019-11-04 18:52] LABS: ANION GAP 7 mmol/L (5-15); CALCIUM 8.5 mg/dL (8.5-10.1); CHLORIDE 86 mmol/L (98-107); CREATININE 0.58 mg/dL (0.55-1.02)
[2019-11-04 21:20] VITALS: BP 134/73
[2019-11-04] MEDS: LISINOPRIL 20 MG TABLET PO SCH (21:37)
[2019-11-04] MEDS: AMLODIPINE 5 MG TABLET PO SCH (21:37)
[2019-11-04 21:40] LABS: ANION GAP 10 mmol/L (5-15); CALCIUM 8.5 mg/dL (8.5-10.1); CHLORIDE 88 mmol/L (98-107); CREATININE 0.59 mg/dL (0.55-1.02)
[2019-11-05] MEDS: PHENOBARBITAL SODIUM 65 MG/ML, 1ML IM SCH ×2 (00:38→12:00)
[2019-11-05 01:48] LABS: ANION GAP 9 mmol/L (5-15); CALCIUM 8.2 mg/dL (8.5-10.1); CHLORIDE 90 mmol/L (98-107); CREATININE 0.52 mg/dL (0.55-1.02)
[2019-11-05] MEDS: SODIUM CHLORIDE 3% 500 ML IV PRN ×2 (01:57→05:29)
[2019-11-05] MEDS ORDERED: SODIUM CHLORIDE 3% 500 ML IV PRN (02:00)
[2019-11-05 04:03] VITALS: BP 146/80
[2019-11-05 05:24] LABS: BASOPHILS # (AUTO) 0.01 x10^3/uL (0-0.1); BASOPHILS % (AUTO) 0 % (0-1); EOSINOPHILS # (AUTO) 0.05 x10^3/uL (0-0.4); EOSINOPHILS % (AUTO) 1 % (1-7); LYMPHOCYTES # (AUTO) 0.69 x10^3/uL (1-3.4); LYMPHOCYTES % (AUTO) 9 % (22-44); MD NO; MEAN CORPUSCULAR HEMOGLOBIN 30.8 pg (27.0-34.8); MEAN CORPUSCULAR HGB CONC 32.9 g/dL (32.4-35.8); MEAN PLATELET VOLUME 6.4 fL (7.4-10.4); MONOCYTES # (AUTO) 0.89 x10^3/uL (0.2-0.8); MONOCYTES % (AUTO) 11 % (2-9); NEUTROPHILS # (AUTO) 6.14 x10^3/uL (1.8-6.8); NEUTROPHILS % (AUTO) 79 % (42-75); PLATELET COUNT 572 x10^3/uL (130-400); RED BLOOD COUNT 3.74 x10^6/uL (3.82-5.3); RED CELL DISTRIBUTION WIDTH 14.9 % (9.6-15.2)
[2019-11-05 05:30] LABS: ALANINE AMINOTRANSFERASE 36 U/L (12-78); ALBUMIN 2.9 g/dL (3.4-5.0); ANION GAP 9 mmol/L (5-15); CHLORIDE 91 mmol/L (98-107); CREATININE 0.52 mg/dL (0.55-1.02)
[2019-11-05 05:33] LABS: ALKALINE PHOSPHATASE 54 U/L (45-117); BILIRUBIN,TOTAL 0.5 mg/dL (0.2-1.0); TOTAL PROTEIN 5.8 g/dL (6.4-8.2)
[2019-11-05] MEDS: THIAMINE 200 MG in DEXTROSE 5% 50 ML IVPB SCH (07:44)
[2019-11-05] MEDS: PANTOPRAZOLE 40 MG IV IVPush SCH (07:44)
[2019-11-05 08:52] LABS: ANION GAP 6 mmol/L (5-15); CALCIUM 8.5 mg/dL (8.5-10.1); CHLORIDE 93 mmol/L (98-107)
[2019-11-05] MEDS ORDERED: ATORVASTATIN 80 MG TABLET PO SCH (09:00)
[2019-11-05] MEDS: BUSPIRONE 10 MG TABLET PO SCH ×3 (10:07→20:25)
[2019-11-05] MEDS: MULTIVITAMIN 1 TABLET PO SCH (10:08)
[2019-11-05] MEDS: CETIRIZINE 10 MG TABLET PO SCH (10:08)
[2019-11-05] MEDS: FOLIC ACID 1 MG TABLET PO SCH (10:08)
[2019-11-05] MEDS: FLUOXETINE HCL 20 MG CAPSULE PO SCH (10:08)
[2019-11-05] MEDS: LISINOPRIL 20 MG TABLET PO SCH ×2 (10:08→20:30)
[2019-11-05] MEDS: AMLODIPINE 5 MG TABLET PO SCH ×2 (10:08→20:29)
[2019-11-05] MEDS: CEFTRIAXONE PMX 1GM/50ML 50 ML IV SCH (10:09)
--- NOTE | 2019-11-05 11:30 | NUR ---
TF recommendations: Promote ON/OFF propofol: 60/60 ml/hr
[2019-11-05] MEDS: LINEZOLID 600 MG TABLET PO SCH ×2 (12:42→20:30)
[2019-11-05] MEDS ORDERED: LISINOPRIL 10 MG TABLET ONE (20:20)
[2019-11-06] MEDS: PHENOBARBITAL SODIUM 65 MG/ML, 1ML IM SCH
[2019-11-06 04:00] VITALS: BP 164/86
[2019-11-06 08:03] LABS: ANION GAP 7 mmol/L (5-15); CALCIUM 8.5 mg/dL (8.5-10.1); CHLORIDE 96 mmol/L (98-107); CREATININE 0.59 mg/dL (0.55-1.02)
[2019-11-06] MEDS ORDERED: LISINOPRIL 10 MG TABLET ONE (08:07)
[2019-11-06] MEDS: FOLIC ACID 1 MG TABLET PO SCH (08:13)
[2019-11-06] MEDS: MULTIVITAMIN 1 TABLET PO SCH (08:13)
[2019-11-06] MEDS: LISINOPRIL 20 MG TABLET PO SCH ×2 (08:13→20:11)
[2019-11-06] MEDS: AMLODIPINE 5 MG TABLET PO SCH ×2 (08:14→20:11)
[2019-11-06] MEDS: FLUOXETINE HCL 20 MG CAPSULE PO SCH (08:15)
[2019-11-06] MEDS: PANTOPRAZOLE 40 MG IV IVPush SCH (08:15)
[2019-11-06] MEDS: CETIRIZINE 10 MG TABLET PO SCH (08:15)
[2019-11-06] MEDS: LINEZOLID 600 MG TABLET PO SCH ×2 (08:15→20:11)
[2019-11-06] MEDS: BUSPIRONE 10 MG TABLET PO SCH (08:15)
[2019-11-06] MEDS: THIAMINE 200 MG in DEXTROSE 5% 50 ML IVPB SCH (08:32)
[2019-11-06 08:42] VITALS: BP 121/72
[2019-11-06] MEDS ORDERED: POTASSIUM CHLORIDE 20 MEQ TAB.ER.PRT PO ONE (09:30)
[2019-11-06] MEDS ORDERED: MAGNESIUM SULFATE PMX 2GM/50ML 50 ML IV ONE (11:00)
[2019-11-06] MEDS: CEFTRIAXONE PMX 1GM/50ML 50 ML IV SCH (11:25)
[2019-11-06 13:37] VITALS: BP 143/76
[2019-11-06] MEDS: BUSPIRONE 5 MG TABLET PO SCH ×2 (17:20→22:38)
[2019-11-06 18:22] LABS: ANION GAP 7 mmol/L (5-15); CALCIUM 8.8 mg/dL (8.5-10.1); CHLORIDE 97 mmol/L (98-107); CREATININE 0.73 mg/dL (0.55-1.02)
[2019-11-06 20:08] VITALS: BP 155/82
[2019-11-06] MEDS: ATORVASTATIN 40 MG TABLET PO SCH (20:11)
[2019-11-07 00:03] VITALS: BP 147/83
[2019-11-07 05:24] LABS: ANION GAP 7 mmol/L (5-15); CALCIUM 8.2 mg/dL (8.5-10.1); CHLORIDE 95 mmol/L (98-107); CREATININE 0.64 mg/dL (0.55-1.02)
[2019-11-07] MEDS ORDERED: PANTOPRAZOLE 40MG TABLET PO SCH (06:00)
[2019-11-07 07:52] VITALS: BP 130/80
[2019-11-07] MEDS: LACTOBACILLUS CHEW TABLET PO SCH ×3 (09:13→20:33)
[2019-11-07] MEDS: FOLIC ACID 1 MG TABLET PO SCH (09:13)
[2019-11-07] MEDS: AMLODIPINE 5 MG TABLET PO SCH ×2 (09:13→20:33)
[2019-11-07] MEDS: MULTIVITAMIN 1 TABLET PO SCH (09:13)
[2019-11-07] MEDS: BUSPIRONE 5 MG TABLET PO SCH ×3 (09:13→20:33)
[2019-11-07] MEDS: CETIRIZINE 10 MG TABLET PO SCH (09:14)
[2019-11-07] MEDS: LISINOPRIL 10 MG TABLET PO SCH ×2 (09:14→20:33)
[2019-11-07] MEDS: FLUOXETINE HCL 20 MG CAPSULE PO SCH (09:14)
[2019-11-07] MEDS: THIAMINE 100MG TABLET PO SCH (09:14)
[2019-11-07] MEDS: LINEZOLID 600 MG TABLET PO SCH ×2 (09:15→20:33)
[2019-11-07] MEDS: CEFTRIAXONE PMX 1GM/50ML 50 ML IV SCH (10:59)
[2019-11-07] MEDS: SODIUM CHLORIDE 0.9% 1,000 ML IV SCH (12:48)
[2019-11-07 13:00] VITALS: BP 122/77
[2019-11-07 18:31] LABS: ANION GAP 10 mmol/L (5-15); CALCIUM 8.2 mg/dL (8.5-10.1); CHLORIDE 93 mmol/L (98-107); CREATININE 0.97 mg/dL (0.55-1.02)
[2019-11-07 19:42] VITALS: BP 155/85
[2019-11-07] MEDS: ATORVASTATIN 40 MG TABLET PO SCH (20:33)
[2019-11-08] MEDS: MELATONIN 5 MG TABLET PO PRN ×2 (00:22→23:34)
[2019-11-08 00:24] VITALS: BP 179/94
[2019-11-08] MEDS: SODIUM CHLORIDE 0.9% 1,000 ML IV SCH (05:25)
[2019-11-08 06:14] LABS: BASOPHILS # (AUTO) 0.03 x10^3/uL (0-0.1); BASOPHILS % (AUTO) 0 % (0-1); EOSINOPHILS # (AUTO) 0.08 x10^3/uL (0-0.4); EOSINOPHILS % (AUTO) 1 % (1-7); LYMPHOCYTES # (AUTO) 2.08 x10^3/uL (1-3.4); LYMPHOCYTES % (AUTO) 22 % (22-44); MD NO; MEAN CORPUSCULAR HEMOGLOBIN 30.4 pg (27.0-34.8); MEAN CORPUSCULAR HGB CONC 32.2 g/dL (32.4-35.8); MEAN PLATELET VOLUME 5.9 fL (7.4-10.4); MONOCYTES # (AUTO) 0.69 x10^3/uL (0.2-0.8); MONOCYTES % (AUTO) 7 % (2-9); NEUTROPHILS % (AUTO) 70 % (42-75); PLATELET COUNT 654 x10^3/uL (130-400); RED BLOOD COUNT 3.77 x10^6/uL (3.82-5.3); RED CELL DISTRIBUTION WIDTH 14.4 % (9.6-15.2)
[2019-11-08 06:21] LABS: ANION GAP 7 mmol/L (5-15); CALCIUM 8.5 mg/dL (8.5-10.1); CHLORIDE 90 mmol/L (98-107); CREATININE 0.53 mg/dL (0.55-1.02)
[2019-11-08 07:47] VITALS: BP 168/82
[2019-11-08] MEDS: LISINOPRIL 10 MG TABLET PO SCH ×2 (08:41→20:31)
[2019-11-08] MEDS: LACTOBACILLUS CHEW TABLET PO SCH ×3 (08:42→20:32)
[2019-11-08] MEDS: AMLODIPINE 5 MG TABLET PO SCH ×2 (08:42→20:31)
[2019-11-08] MEDS: CETIRIZINE 10 MG TABLET PO SCH (08:42)
[2019-11-08] MEDS: LINEZOLID 600 MG TABLET PO SCH (08:42)
[2019-11-08] MEDS: MULTIVITAMIN 1 TABLET PO SCH (08:42)
[2019-11-08] MEDS: FLUOXETINE HCL 20 MG CAPSULE PO SCH (08:42)
[2019-11-08] MEDS: THIAMINE 100MG TABLET PO SCH (08:42)
[2019-11-08] MEDS: CARVEDILOL 6.25 MG TABLET PO SCH ×2 (08:42→16:30)
[2019-11-08] MEDS: BUSPIRONE 5 MG TABLET PO SCH ×3 (08:43→20:32)
[2019-11-08] MEDS: FOLIC ACID 1 MG TABLET PO SCH (08:43)
[2019-11-08 12:40] LABS: CALCIUM 8.6 mg/dL (8.5-10.1)
[2019-11-08 13:04] LABS: CHLORIDE,URINE RANDOM 64 mmol/L; POTASSIUM,URINE RANDOM 16 mmol/L; SODIUM,URINE RANDOM 55 mmol/L
[2019-11-08 13:19] VITALS: BP 132/79
[2019-11-08] MEDS ORDERED: FERROUS SULFATE 325 MG TABLET PO SCH (14:00)
[2019-11-08 16:30] VITALS: BP 143/78
[2019-11-08 19:02] LABS: MICROSCOPIC NOT IND
[2019-11-08 19:53] VITALS: BP 138/80
[2019-11-08] MEDS: ATORVASTATIN 40 MG TABLET PO SCH (20:32)
[2019-11-08 21:51] LABS: OSMOLALITY,URINE 304 mOsm/kg (500-850)
[2019-11-09 02:05] VITALS: BP 164/91
[2019-11-09 05:28] VITALS: BP 161/92
[2019-11-09] MEDS: CARVEDILOL 6.25 MG TABLET PO SCH ×2 (05:29→16:56)
[2019-11-09 05:34] LABS: BASOPHILS # (AUTO) 0.05 x10^3/uL (0-0.1); BASOPHILS % (AUTO) 1 % (0-1); EOSINOPHILS # (AUTO) 0.11 x10^3/uL (0-0.4); EOSINOPHILS % (AUTO) 1 % (1-7); LYMPHOCYTES # (AUTO) 2.28 x10^3/uL (1-3.4); LYMPHOCYTES % (AUTO) 24 % (22-44); MD NO; MEAN CORPUSCULAR HEMOGLOBIN 30.3 pg (27.0-34.8); MEAN CORPUSCULAR HGB CONC 31.7 g/dL (32.4-35.8); MEAN PLATELET VOLUME 5.9 fL (7.4-10.4); MONOCYTES # (AUTO) 0.64 x10^3/uL (0.2-0.8); MONOCYTES % (AUTO) 7 % (2-9); NEUTROPHILS # (AUTO) 6.32 x10^3/uL (1.8-6.8); NEUTROPHILS % (AUTO) 67 % (42-75); PLATELET COUNT 660 x10^3/uL (130-400); RED BLOOD COUNT 3.76 x10^6/uL (3.82-5.3); RED CELL DISTRIBUTION WIDTH 14.2 % (9.6-15.2)
[2019-11-09 06:25] LABS: ALBUMIN 2.7 g/dL (3.4-5.0); ANION GAP 8 mmol/L (5-15); CHLORIDE 91 mmol/L (98-107); CREATININE 0.53 mg/dL (0.55-1.02)
[2019-11-09 07:31] VITALS: BP 152/82
[2019-11-09] MEDS ORDERED: POTASSIUM CHLORIDE 20 MEQ TAB.ER.PRT PO ONE (08:00)
[2019-11-09] MEDS: FOLIC ACID 1 MG TABLET PO SCH (08:14)
[2019-11-09] MEDS: LACTOBACILLUS CHEW TABLET PO SCH ×3 (08:14→20:15)
[2019-11-09] MEDS: CETIRIZINE 10 MG TABLET PO SCH (08:15)
[2019-11-09] MEDS: AMLODIPINE 5 MG TABLET PO SCH ×2 (08:15→20:14)
[2019-11-09] MEDS: THIAMINE 100MG TABLET PO SCH (08:15)
[2019-11-09] MEDS: MULTIVITAMIN 1 TABLET PO SCH (08:15)
[2019-11-09] MEDS: BUSPIRONE 5 MG TABLET PO SCH ×3 (08:15→20:14)
[2019-11-09] MEDS: LISINOPRIL 10 MG TABLET PO SCH ×2 (08:15→20:14)
[2019-11-09] MEDS: ERGOCALCIFEROL 50,000 UNIT CAPSULE PO SCH (13:15)
[2019-11-09] MEDS: FERROUS SULFATE 325 MG TABLET PO SCH (13:15)
[2019-11-09 13:18] VITALS: BP 137/85
[2019-11-09 16:56] VITALS: BP 145/80
[2019-11-09 20:10] VITALS: BP 165/93
[2019-11-09] MEDS: ATORVASTATIN 40 MG TABLET PO SCH (20:15)
[2019-11-09] MEDS: MELATONIN 5 MG TABLET PO PRN (20:41)
[2019-11-09] MEDS: ACETAMINOPHEN 325 MG TABLET PO PRN (23:16)
[2019-11-10 03:08] VITALS: BP 164/97
[2019-11-10 05:49] LABS: CHLORIDE 91 mmol/L (98-107)
[2019-11-10 05:55] LABS: ALBUMIN 2.9 g/dL (3.4-5.0); ANION GAP 13 mmol/L (5-15); CALCIUM 8.1 mg/dL (8.5-10.1); CREATININE 0.52 mg/dL (0.55-1.02)
[2019-11-10 05:58] VITALS: BP 149/83
[2019-11-10] MEDS: CARVEDILOL 6.25 MG TABLET PO SCH (06:00)
[2019-11-10 06:05] LABS: BASOPHILS # (AUTO) 0.05 x10^3/uL (0-0.1); BASOPHILS % (AUTO) 1 % (0-1); EOSINOPHILS # (AUTO) 0.13 x10^3/uL (0-0.4); EOSINOPHILS % (AUTO) 1 % (1-7); LYMPHOCYTES # (AUTO) 1.73 x10^3/uL (1-3.4); LYMPHOCYTES % (AUTO) 16 % (22-44); MD NO; MEAN CORPUSCULAR HEMOGLOBIN 30.7 pg (27.0-34.8); MEAN CORPUSCULAR HGB CONC 32.9 g/dL (32.4-35.8); MEAN PLATELET VOLUME 6.2 fL (7.4-10.4); MONOCYTES % (AUTO) 6 % (2-9); NEUTROPHILS # (AUTO) 8.38 x10^3/uL (1.8-6.8); NEUTROPHILS % (AUTO) 76 % (42-75); PLATELET COUNT 579 x10^3/uL (130-400); RED BLOOD COUNT 3.81 x10^6/uL (3.82-5.3); RED CELL DISTRIBUTION WIDTH 14.9 % (9.6-15.2)
[2019-11-10] MEDS ORDERED: MAGNESIUM SULFATE PMX 4GM/100M 100 ML IV ONE ×2 (07:30→15:00)
[2019-11-10 07:43] VITALS: BP 150/87
[2019-11-10] MEDS: CETIRIZINE 10 MG TABLET PO SCH (08:32)
[2019-11-10] MEDS: POTASSIUM CHLORIDE 20 MEQ PACKET PO SCH (08:32)
[2019-11-10] MEDS: CALCIUM CARBONATE 500 MG TABLET PO SCH ×2 (08:32→21:50)
[2019-11-10] MEDS: LACTOBACILLUS CHEW TABLET PO SCH ×3 (08:32→21:50)
[2019-11-10] MEDS: FOLIC ACID 1 MG TABLET PO SCH (08:32)
[2019-11-10] MEDS: FERROUS SULFATE 325 MG TABLET PO SCH (08:32)
[2019-11-10] MEDS: BUSPIRONE 5 MG TABLET PO SCH ×3 (08:32→21:50)
[2019-11-10] MEDS: LISINOPRIL 10 MG TABLET PO SCH ×2 (08:33→21:50)
[2019-11-10] MEDS: AMLODIPINE 5 MG TABLET PO SCH ×2 (08:33→21:49)
[2019-11-10] MEDS: MULTIVITAMIN 1 TABLET PO SCH (08:33)
[2019-11-10 13:19] VITALS: BP 137/85
[2019-11-10] MEDS: SODIUM CHLORIDE 1 GM TABLET PO SCH ×2 (14:01→21:49)
[2019-11-10] MEDS ORDERED: MAGNESIUM SULFATE PMX 2GM/50ML 50 ML IV ONE (16:00)
[2019-11-10] MEDS: CARVEDILOL 12.5 MG TABLET PO SCH (16:25)
[2019-11-10 16:26] VITALS: BP 140/80
[2019-11-10 20:00] VITALS: BP 165/89
[2019-11-10] MEDS: ATORVASTATIN 40 MG TABLET PO SCH (21:50)
[2019-11-10] MEDS: MELATONIN 5 MG TABLET PO PRN (21:50)
[2019-11-11 00:11] VITALS: BP 152/89
[2019-11-11 04:56] VITALS: BP 145/83
[2019-11-11] MEDS: CARVEDILOL 12.5 MG TABLET PO SCH ×2 (04:58→16:07)
[2019-11-11 06:26] LABS: ANION GAP 9 mmol/L (5-15); CALCIUM 8.1 mg/dL (8.5-10.1); CHLORIDE 96 mmol/L (98-107); CREATININE 0.59 mg/dL (0.55-1.02)
[2019-11-11 07:12] VITALS: BP 124/75
[2019-11-11] MEDS: CETIRIZINE 10 MG TABLET PO SCH (11:31)
[2019-11-11] MEDS: LACTOBACILLUS CHEW TABLET PO SCH ×3 (11:31→20:56)
[2019-11-11] MEDS: FERROUS SULFATE 325 MG TABLET PO SCH (11:31)
[2019-11-11] MEDS: FOLIC ACID 1 MG TABLET PO SCH (11:31)
[2019-11-11] MEDS: POTASSIUM CHLORIDE 20 MEQ PACKET PO SCH (11:31)
[2019-11-11] MEDS: MULTIVITAMIN 1 TABLET PO SCH (11:32)
[2019-11-11] MEDS: BUSPIRONE 5 MG TABLET PO SCH ×3 (11:32→20:56)
[2019-11-11] MEDS: AMLODIPINE 5 MG TABLET PO SCH ×2 (11:32→20:56)
[2019-11-11] MEDS: SODIUM CHLORIDE 1 GM TABLET PO SCH ×2 (11:32→20:56)
[2019-11-11] MEDS: CALCIUM CARBONATE 500 MG TABLET PO SCH ×2 (11:32→20:56)
[2019-11-11] MEDS: LISINOPRIL 10 MG TABLET PO SCH ×2 (11:33→20:56)
[2019-11-11 13:04] VITALS: BP 160/83
[2019-11-11] MEDS: ACETAMINOPHEN 325 MG TABLET PO PRN (16:41)
[2019-11-11 19:20] VITALS: BP 153/94
[2019-11-11] MEDS: ATORVASTATIN 40 MG TABLET PO SCH (20:56)
[2019-11-11] MEDS ORDERED: LORazepam 1MG TABLET PO ONE (21:00)
[2019-11-12 01:40] VITALS: BP 126/75
[2019-11-12 05:45] LABS: ANION GAP 10 mmol/L (5-15); CALCIUM 8.9 mg/dL (8.5-10.1); CHLORIDE 96 mmol/L (98-107)
[2019-11-12 05:48] LABS: CREATININE 0.59 mg/dL (0.55-1.02)
[2019-11-12] MEDS: CARVEDILOL 12.5 MG TABLET PO SCH ×2 (06:37→17:49)
[2019-11-12] MEDS: SODIUM CHLORIDE 1 GM TABLET PO SCH ×2 (08:22→20:27)
[2019-11-12] MEDS: FERROUS SULFATE 325 MG TABLET PO SCH (08:23)
[2019-11-12] MEDS: MULTIVITAMIN 1 TABLET PO SCH (08:23)
[2019-11-12] MEDS: FOLIC ACID 1 MG TABLET PO SCH (08:23)
[2019-11-12] MEDS: BUSPIRONE 5 MG TABLET PO SCH ×3 (08:23→20:27)
[2019-11-12] MEDS: LACTOBACILLUS CHEW TABLET PO SCH ×3 (08:23→20:27)
[2019-11-12] MEDS: CALCIUM CARBONATE 500 MG TABLET PO SCH ×2 (08:23→20:27)
[2019-11-12] MEDS: CETIRIZINE 10 MG TABLET PO SCH (08:23)
[2019-11-12] MEDS: POTASSIUM CHLORIDE 20 MEQ PACKET PO SCH (08:23)
[2019-11-12] MEDS: LISINOPRIL 10 MG TABLET PO SCH ×2 (08:26→20:27)
[2019-11-12] MEDS: AMLODIPINE 5 MG TABLET PO SCH ×2 (08:27→20:27)
[2019-11-12 08:28] VITALS: BP 106/64
[2019-11-12 12:56] VITALS: BP 147/82
[2019-11-12] MEDS: ACETAMINOPHEN 325 MG TABLET PO PRN ×2 (16:16→22:32)
[2019-11-12 19:04] VITALS: BP 136/84
[2019-11-12] MEDS: ATORVASTATIN 40 MG TABLET PO SCH (20:27)
[2019-11-12] MEDS: MELATONIN 5 MG TABLET PO PRN (20:27)
[2019-11-13 00:41] VITALS: BP 113/71
[2019-11-13 05:28] LABS: ANION GAP 8 mmol/L (5-15); CALCIUM 8.4 mg/dL (8.5-10.1); CHLORIDE 94 mmol/L (98-107)
[2019-11-13 05:30] LABS: CREATININE 0.54 mg/dL (0.55-1.02)
[2019-11-13] MEDS: CARVEDILOL 12.5 MG TABLET PO SCH ×2 (06:05→17:56)
[2019-11-13 06:50] VITALS: BP 133/75
[2019-11-13] MEDS: LISINOPRIL 10 MG TABLET PO SCH ×2 (08:21→20:20)
[2019-11-13] MEDS: MULTIVITAMIN 1 TABLET PO SCH (08:21)
[2019-11-13] MEDS: FERROUS SULFATE 325 MG TABLET PO SCH (08:21)
[2019-11-13] MEDS: CETIRIZINE 10 MG TABLET PO SCH (08:21)
[2019-11-13] MEDS: POTASSIUM CHLORIDE 20 MEQ PACKET PO SCH (08:21)
[2019-11-13] MEDS: AMLODIPINE 5 MG TABLET PO SCH ×2 (08:21→20:20)
[2019-11-13] MEDS: BUSPIRONE 5 MG TABLET PO SCH ×3 (08:22→20:21)
[2019-11-13] MEDS: FOLIC ACID 1 MG TABLET PO SCH (08:22)
[2019-11-13] MEDS: SODIUM CHLORIDE 1 GM TABLET PO SCH ×2 (08:22→20:21)
[2019-11-13] MEDS: CALCIUM CARBONATE 500 MG TABLET PO SCH ×2 (08:22→20:20)
[2019-11-13] MEDS: LACTOBACILLUS CHEW TABLET PO SCH ×3 (08:22→20:20)
[2019-11-13 13:12] LABS: SODIUM,URINE RANDOM 25 mmol/L
[2019-11-13 13:50] LABS: OSMOLALITY,URINE 202 mOsm/kg (500-850)
[2019-11-13 14:45] VITALS: BP 136/80
[2019-11-13] MEDS: ACETAMINOPHEN 325 MG TABLET PO PRN (16:03)
[2019-11-13 18:30] VITALS: BP 158/92
[2019-11-13] MEDS: MELATONIN 5 MG TABLET PO PRN (20:20)
[2019-11-13] MEDS: ATORVASTATIN 40 MG TABLET PO SCH (20:21)
[2019-11-14] MEDS: ACETAMINOPHEN 325 MG TABLET PO PRN ×2 (00:20→19:59)
[2019-11-14 01:18] VITALS: BP 137/79
[2019-11-14 05:37] LABS: CALCIUM 8.6 mg/dL (8.5-10.1); CHLORIDE 99 mmol/L (98-107)
[2019-11-14 05:41] LABS: ALBUMIN 3.3 g/dL (3.4-5.0); ANION GAP 8 mmol/L (5-15); CREATININE 0.66 mg/dL (0.55-1.02)
[2019-11-14 07:58] VITALS: BP 117/70
[2019-11-14] MEDS: CALCIUM CARBONATE 500 MG TABLET PO SCH ×2 (08:46→19:58)
[2019-11-14] MEDS: LACTOBACILLUS CHEW TABLET PO SCH ×3 (08:46→19:59)
[2019-11-14] MEDS: MULTIVITAMIN 1 TABLET PO SCH (08:46)
[2019-11-14] MEDS: CARVEDILOL 12.5 MG TABLET PO SCH ×2 (08:46→17:50)
[2019-11-14] MEDS: AMLODIPINE 5 MG TABLET PO SCH ×2 (08:46→19:59)
[2019-11-14] MEDS: SODIUM CHLORIDE 1 GM TABLET PO SCH ×2 (08:46→19:58)
[2019-11-14] MEDS: FOLIC ACID 1 MG TABLET PO SCH (08:46)
[2019-11-14] MEDS: CETIRIZINE 10 MG TABLET PO SCH (08:47)
[2019-11-14] MEDS: LISINOPRIL 10 MG TABLET PO SCH ×2 (08:47→19:59)
[2019-11-14] MEDS: BUSPIRONE 5 MG TABLET PO SCH ×3 (08:47→19:59)
[2019-11-14] MEDS: FERROUS SULFATE 325 MG TABLET PO SCH (08:47)
[2019-11-14] MEDS: POTASSIUM CHLORIDE 20 MEQ PACKET PO SCH (08:47)
[2019-11-14 15:30] VITALS: BP 130/75
[2019-11-14 19:00] VITALS: BP 129/67
[2019-11-14] MEDS: MELATONIN 5 MG TABLET PO PRN (19:58)
[2019-11-14] MEDS: ATORVASTATIN 40 MG TABLET PO SCH (20:02)
[2019-11-15 01:49] VITALS: BP 100/66
[2019-11-15 05:58] LABS: ANION GAP 11 mmol/L (5-15); CHLORIDE 103 mmol/L (98-107); CREATININE 0.66 mg/dL (0.55-1.02)
[2019-11-15] MEDS: ASPIRIN 81 MG TABLET EC PO SCH (06:07)
[2019-11-15] MEDS: CARVEDILOL 12.5 MG TABLET PO SCH ×2 (06:07→16:31)
[2019-11-15 06:10] VITALS: BP 110/76
[2019-11-15] MEDS: POTASSIUM CHLORIDE 20 MEQ PACKET PO SCH (08:11)
[2019-11-15] MEDS: SODIUM CHLORIDE 1 GM TABLET PO SCH (08:12)
[2019-11-15] MEDS: MULTIVITAMIN 1 TABLET PO SCH (08:12)
[2019-11-15] MEDS: LACTOBACILLUS CHEW TABLET PO SCH ×3 (08:12→20:00)
[2019-11-15] MEDS: AMLODIPINE 5 MG TABLET PO SCH ×2 (08:12→20:01)
[2019-11-15] MEDS: LISINOPRIL 10 MG TABLET PO SCH ×2 (08:12→19:56)
[2019-11-15] MEDS: CALCIUM CARBONATE 500 MG TABLET PO SCH ×2 (08:12→19:56)
[2019-11-15] MEDS: CETIRIZINE 10 MG TABLET PO SCH (08:12)
[2019-11-15] MEDS: FOLIC ACID 1 MG TABLET PO SCH (08:12)
[2019-11-15] MEDS: BUSPIRONE 5 MG TABLET PO SCH ×3 (08:12→20:01)
[2019-11-15] MEDS: FERROUS SULFATE 325 MG TABLET PO SCH (08:12)
[2019-11-15 08:15] VITALS: BP 97/58
[2019-11-15 12:08] VITALS: BP 106/71
[2019-11-15 16:31] VITALS: BP 147/89
[2019-11-15 18:19] VITALS: BP 122/72
[2019-11-15] MEDS: ACETAMINOPHEN 325 MG TABLET PO PRN (19:56)
[2019-11-15] MEDS: ATORVASTATIN 40 MG TABLET PO SCH (20:00)
[2019-11-15] MEDS: MELATONIN 5 MG TABLET PO PRN (22:47)
[2019-11-16] MEDS ORDERED: HALOPERIDOL 5 MG TABLET PO ONE (00:30)
[2019-11-16 00:53] VITALS: BP 143/80
[2019-11-16] MEDS: ACETAMINOPHEN 325 MG TABLET PO PRN ×3 (02:16→22:56)
[2019-11-16] MEDS ORDERED: HALOPERIDOL 5 MG TABLET PO PRN (05:30)
[2019-11-16 05:37] VITALS: BP 136/83
[2019-11-16] MEDS: ASPIRIN 81 MG TABLET EC PO SCH (05:39)
[2019-11-16] MEDS: CARVEDILOL 12.5 MG TABLET PO SCH ×2 (05:39→16:31)
[2019-11-16 06:18] VITALS: BP 112/72
[2019-11-16 06:26] LABS: CHLORIDE 100 mmol/L (98-107)
[2019-11-16 06:32] LABS: ANION GAP 10 mmol/L (5-15); CALCIUM 9.1 mg/dL (8.5-10.1); CREATININE 0.67 mg/dL (0.55-1.02)
[2019-11-16 08:26] LABS: BASOPHILS # (AUTO) 0.06 x10^3/uL (0-0.1); BASOPHILS % (AUTO) 1 % (0-1); EOSINOPHILS # (AUTO) 0.12 x10^3/uL (0-0.4); EOSINOPHILS % (AUTO) 1 % (1-7); LYMPHOCYTES # (AUTO) 0.91 x10^3/uL (1-3.4); LYMPHOCYTES % (AUTO) 11 % (22-44); MD SCAN; MEAN CORPUSCULAR HEMOGLOBIN 30.3 pg (27.0-34.8); MEAN CORPUSCULAR HGB CONC 32.2 g/dL (32.4-35.8); MEAN PLATELET VOLUME 5.9 fL (7.4-10.4); MONOCYTES # (AUTO) 0.81 x10^3/uL (0.2-0.8); MONOCYTES % (AUTO) 10 % (2-9); NEUTROPHILS # (AUTO) 6.61 x10^3/uL (1.8-6.8); NEUTROPHILS % (AUTO) 78 % (42-75); PLATELET COUNT 393 x10^3/uL (130-400); RED BLOOD COUNT 3.86 x10^6/uL (3.82-5.3); RED CELL DISTRIBUTION WIDTH 14.9 % (9.6-15.2)
[2019-11-16] MEDS: LACTOBACILLUS CHEW TABLET PO SCH ×3 (09:38→21:07)
[2019-11-16] MEDS: FERROUS SULFATE 325 MG TABLET PO SCH (09:38)
[2019-11-16] MEDS: BUSPIRONE 5 MG TABLET PO SCH ×3 (09:38→21:07)
[2019-11-16] MEDS: AMLODIPINE 5 MG TABLET PO SCH ×2 (09:38→21:07)
[2019-11-16] MEDS: MULTIVITAMIN 1 TABLET PO SCH (09:38)
[2019-11-16] MEDS: FOLIC ACID 1 MG TABLET PO SCH (09:38)
[2019-11-16] MEDS: CETIRIZINE 10 MG TABLET PO SCH (09:38)
[2019-11-16] MEDS: CALCIUM CARBONATE 500 MG TABLET PO SCH ×2 (09:38→21:07)
[2019-11-16] MEDS: POTASSIUM CHLORIDE 20 MEQ PACKET PO SCH (09:38)
[2019-11-16] MEDS: LISINOPRIL 10 MG TABLET PO SCH ×2 (09:38→21:07)
[2019-11-16] MEDS: SODIUM CHLORIDE 1 GM TABLET PO SCH (12:17)
[2019-11-16] MEDS: ERGOCALCIFEROL 50,000 UNIT CAPSULE PO SCH (12:33)
[2019-11-16 13:20] VITALS: BP 113/72
[2019-11-16 16:34] VITALS: BP 146/83
[2019-11-16 18:35] VITALS: BP 106/67
[2019-11-16] MEDS: ATORVASTATIN 40 MG TABLET PO SCH (21:07)
[2019-11-16] MEDS: MELATONIN 5 MG TABLET PO PRN (21:07)
[2019-11-17 01:32] VITALS: BP 133/79
[2019-11-17 06:13] LABS: ALBUMIN 3.1 g/dL (3.4-5.0); ANION GAP 7 mmol/L (5-15); CALCIUM 9.1 mg/dL (8.5-10.1); CHLORIDE 102 mmol/L (98-107); CREATININE 0.62 mg/dL (0.55-1.02)
[2019-11-17 06:48] VITALS: BP 142/80
[2019-11-17] MEDS: MULTIVITAMIN 1 TABLET PO SCH (09:44)
[2019-11-17] MEDS: POTASSIUM CHLORIDE 20 MEQ PACKET PO SCH (09:44)
[2019-11-17] MEDS: CETIRIZINE 10 MG TABLET PO SCH (09:44)
[2019-11-17] MEDS: SODIUM CHLORIDE 1 GM TABLET PO SCH (09:44)
[2019-11-17] MEDS: AMLODIPINE 5 MG TABLET PO SCH ×2 (09:45→20:05)
[2019-11-17] MEDS: CALCIUM CARBONATE 500 MG TABLET PO SCH ×2 (09:45→20:05)
[2019-11-17] MEDS: LACTOBACILLUS CHEW TABLET PO SCH ×3 (09:45→20:04)
[2019-11-17] MEDS: BUSPIRONE 5 MG TABLET PO SCH ×3 (09:45→20:05)
[2019-11-17] MEDS: FERROUS SULFATE 325 MG TABLET PO SCH (09:45)
[2019-11-17] MEDS: FOLIC ACID 1 MG TABLET PO SCH (09:45)
[2019-11-17] MEDS: LISINOPRIL 10 MG TABLET PO SCH ×2 (09:45→20:05)
[2019-11-17] MEDS: CARVEDILOL 12.5 MG TABLET PO SCH ×2 (09:48→17:36)
[2019-11-17] MEDS: ASPIRIN 81 MG TABLET EC PO SCH (09:48)
[2019-11-17 12:20] VITALS: BP 168/92
[2019-11-17 19:07] VITALS: BP 129/79
[2019-11-17 20:02] VITALS: BP 136/81
[2019-11-17] MEDS: ATORVASTATIN 40 MG TABLET PO SCH (20:04)
[2019-11-17] MEDS: ACETAMINOPHEN 325 MG TABLET PO PRN (20:04)
[2019-11-18 00:17] LABS: MICROSCOPIC NOT IND
[2019-11-18 00:30] LABS: OSMOLALITY,URINE 411 mOsm/kg (500-850)
[2019-11-18 01:52] VITALS: BP 132/83
[2019-11-18] MEDS: MELATONIN 5 MG TABLET PO PRN ×2 (02:12→22:12)
[2019-11-18 05:58] LABS: CHLORIDE 102 mmol/L (98-107)
[2019-11-18 06:02] LABS: ANION GAP 8 mmol/L (5-15); CALCIUM 8.9 mg/dL (8.5-10.1); CREATININE 0.56 mg/dL (0.55-1.02)
[2019-11-18] MEDS: CARVEDILOL 12.5 MG TABLET PO SCH ×2 (06:15→17:00)
[2019-11-18] MEDS: ASPIRIN 81 MG TABLET EC PO SCH (06:15)
[2019-11-18 06:16] VITALS: BP 151/88
[2019-11-18 06:23] LABS: BASOPHILS # (AUTO) 0.05 x10^3/uL (0-0.1); BASOPHILS % (AUTO) 1 % (0-1); EOSINOPHILS # (AUTO) 0.16 x10^3/uL (0-0.4); EOSINOPHILS % (AUTO) 2 % (1-7); LYMPHOCYTES # (AUTO) 1.37 x10^3/uL (1-3.4); LYMPHOCYTES % (AUTO) 14 % (22-44); MD NO; MEAN CORPUSCULAR HEMOGLOBIN 30.8 pg (27.0-34.8); MEAN CORPUSCULAR HGB CONC 33.1 g/dL (32.4-35.8); MEAN PLATELET VOLUME 6.3 fL (7.4-10.4); MONOCYTES # (AUTO) 0.64 x10^3/uL (0.2-0.8); MONOCYTES % (AUTO) 7 % (2-9); NEUTROPHILS # (AUTO) 7.54 x10^3/uL (1.8-6.8); NEUTROPHILS % (AUTO) 77 % (42-75); PLATELET COUNT 356 x10^3/uL (130-400); RED BLOOD COUNT 4.02 x10^6/uL (3.82-5.3); RED CELL DISTRIBUTION WIDTH 14.7 % (9.6-15.2)
[2019-11-18] MEDS: POTASSIUM CHLORIDE 20 MEQ PACKET PO SCH (12:16)
[2019-11-18] MEDS: BUSPIRONE 5 MG TABLET PO SCH ×3 (12:17→21:02)
[2019-11-18] MEDS: FERROUS SULFATE 325 MG TABLET PO SCH (12:17)
[2019-11-18] MEDS: LACTOBACILLUS CHEW TABLET PO SCH ×3 (12:17→21:02)
[2019-11-18] MEDS: CALCIUM CARBONATE 500 MG TABLET PO SCH ×2 (12:17→21:02)
[2019-11-18] MEDS: FOLIC ACID 1 MG TABLET PO SCH (12:17)
[2019-11-18] MEDS: SODIUM CHLORIDE 1 GM TABLET PO SCH (12:17)
[2019-11-18] MEDS: LISINOPRIL 10 MG TABLET PO SCH ×2 (12:17→21:02)
[2019-11-18] MEDS: CETIRIZINE 10 MG TABLET PO SCH (12:18)
[2019-11-18] MEDS: MULTIVITAMIN 1 TABLET PO SCH (12:18)
[2019-11-18] MEDS: AMLODIPINE 5 MG TABLET PO SCH ×2 (12:18→21:03)
[2019-11-18 13:30] VITALS: BP 126/75
[2019-11-18 20:03] VITALS: BP 132/85
[2019-11-18] MEDS: ACETAMINOPHEN 325 MG TABLET PO PRN (21:02)
[2019-11-18] MEDS: ATORVASTATIN 40 MG TABLET PO SCH (21:03)
[2019-11-19 00:01] VITALS: BP 153/96
[2019-11-19] MEDS: ASPIRIN 81 MG TABLET EC PO SCH (05:39)
[2019-11-19] MEDS: CARVEDILOL 12.5 MG TABLET PO SCH (05:39)
[2019-11-19 06:02] LABS: BASOPHILS # (AUTO) 0.05 x10^3/uL (0-0.1); BASOPHILS % (AUTO) 1 % (0-1); EOSINOPHILS # (AUTO) 0.17 x10^3/uL (0-0.4); EOSINOPHILS % (AUTO) 2 % (1-7); LYMPHOCYTES # (AUTO) 1.44 x10^3/uL (1-3.4); LYMPHOCYTES % (AUTO) 14 % (22-44); MD NO; MEAN CORPUSCULAR HEMOGLOBIN 30.7 pg (27.0-34.8); MEAN CORPUSCULAR HGB CONC 32.8 g/dL (32.4-35.8); MEAN PLATELET VOLUME 6.6 fL (7.4-10.4); MONOCYTES # (AUTO) 0.75 x10^3/uL (0.2-0.8); MONOCYTES % (AUTO) 7 % (2-9); NEUTROPHILS # (AUTO) 7.87 x10^3/uL (1.8-6.8); NEUTROPHILS % (AUTO) 77 % (42-75); PLATELET COUNT 371 x10^3/uL (130-400); RED BLOOD COUNT 4.02 x10^6/uL (3.82-5.3); RED CELL DISTRIBUTION WIDTH 14.9 % (9.6-15.2)
[2019-11-19 06:10] LABS: ANION GAP 6 mmol/L (5-15); CALCIUM 9.1 mg/dL (8.5-10.1); CHLORIDE 100 mmol/L (98-107)
[2019-11-19 07:54] VITALS: BP 126/78
[2019-11-19] MEDS: FOLIC ACID 1 MG TABLET PO SCH (10:32)
[2019-11-19] MEDS: CALCIUM CARBONATE 500 MG TABLET PO SCH (10:33)
[2019-11-19] MEDS: LISINOPRIL 10 MG TABLET PO SCH (10:33)
[2019-11-19] MEDS: POTASSIUM CHLORIDE 20 MEQ PACKET PO SCH (10:33)
[2019-11-19] MEDS: AMLODIPINE 5 MG TABLET PO SCH (10:34)
[2019-11-19] MEDS: MULTIVITAMIN 1 TABLET PO SCH (10:34)
[2019-11-19] MEDS: LACTOBACILLUS CHEW TABLET PO SCH (10:34)
[2019-11-19] MEDS: CETIRIZINE 10 MG TABLET PO SCH (10:34)
[2019-11-19] MEDS: SODIUM CHLORIDE 1 GM TABLET PO SCH (10:34)
[2019-11-19] MEDS: FERROUS SULFATE 325 MG TABLET PO SCH (10:34)
[2019-11-19] MEDS ORDERED: ASPI81TA45 PO (10:43)
[2019-11-19] MEDS ORDERED: FERR-51 PO (10:43)
[2019-11-19] MEDS ORDERED: CARV12.52 PO (10:43)
[2019-11-19] MEDS ORDERED: POTA20PA25 PO (10:43)
[2019-11-19] MEDS ORDERED: SODI1TAB PO ×3 (10:43→10:46)
[2019-11-19] MEDS ORDERED: ACID1TAB7 PO (10:43)
[2019-11-19] MEDS ORDERED: ERGO500017 PO (10:43)
[2019-11-19] MEDS ORDERED: Calcium Carbonate PO (10:43)
[2019-11-19] MEDS: BUSPIRONE 5 MG TABLET PO SCH (10:51)
[2019-12-06] MEDS ORDERED: AMOX1TAB12 PO (11:59)
== END 2019-11-19 14:26 | disposition home health service (06) | DRG 871 ==
LOC: ED 07:49 → EDIP 09:17 → CCU 14:11 → 3N 11-06 10:00
PROVIDERS: ADMIT Hospitalist; ATTEND Hospitalist
DX: A41.9 Sepsis, unspecified organism (principal); G92 Toxic encephalopathy; N39.0 Urinary tract infection, site not specified; E46 Unspecified protein-calorie malnutrition; E22.2 Syndrome of inappropriate secretion of antidiuretic hormone; Z68.1 Body mass index [BMI] 19.9 or less, adult; F32.9 Major depressive disorder, single episode, unspecified; R62.7 Adult failure to thrive; M48.02 Spinal stenosis, cervical region; E86.1 Hypovolemia; E87.6 Hypokalemia; D64.9 Anemia, unspecified; E11.9 Type 2 diabetes mellitus without complications; E61.1 Iron deficiency; E78.5 Hyperlipidemia, unspecified; F10.229 Alcohol dependence with intoxication, unspecified; F17.210 Nicotine dependence, cigarettes, uncomplicated; I10 Essential (primary) hypertension; K70.10 Alcoholic hepatitis without ascites; M19.90 Unspecified osteoarthritis, unspecified site; M47.812 Spondylosis without myelopathy or radiculopathy, cervical region; N28.1 Cyst of kidney, acquired; B96.1 Klebsiella pneumoniae [K. pneumoniae] as the cause of diseases classified elsewhere; S00.83XA Contusion of other part of head, initial encounter; D69.6 Thrombocytopenia, unspecified; I95.9 Hypotension, unspecified; B95.2 Enterococcus as the cause of diseases classified elsewhere; Z86.73 Personal history of transient ischemic attack (TIA), and cerebral infarction without residual deficits; Z90.89 Acquired absence of other organs; Z20.828 Contact with and (suspected) exposure to other viral communicable diseases; W18.30XA Fall on same level, unspecified, initial encounter; Y93.89 Activity, other specified; Y92.89 Other specified places as the place of occurrence of the external cause; Y99.0 Civilian activity done for income or pay; D72.829 Elevated white blood cell count, unspecified; D17.71 Benign lipomatous neoplasm of kidney; Y90.9 Presence of alcohol in blood, level not specified
CPT/HCPCS: 36415; 70450; 70486; 71045; 72125; 72141; 76770; 80048; 80053; 80069; 80307; 81001; 81003; 82306; 82310; 82330; 82436; 82533; 82728; 83540; 83550; 83735; 83930; 83935; 83970; 84100; 84133; 84295; 84300; 84443; 84550; 85025; 85610; 85730; 87077; 87081; 87086; 87186; 87635; 93005; 96374; G0378; J0696; J2560; J3411; C9113; J0360; J3475; J7030

== ENCOUNTER 2019-11-27 13:12 | Emergency (ER) | payer MEDICARE, MEDICAID ==
[~2019-11-27] VITALS: Ht 160 cm; Wt 61.0 kg
[~2019-11-27 13:12] MED LIST changes: +ACID1TAB7 PO; +ASPI81TA45 PO; +CARV12.52 PO; +Calcium Carbonate PO; +ERGO500017 PO; +FERR-51 PO; +POTA20PA25 PO; +SODI1TAB PO
[2019-11-27 13:14] VITALS: BP 105/63
[2019-11-27 14:01] LABS: BASOPHILS % (AUTO) 0 % (0-1); EOSINOPHILS # (AUTO) 0.11 x10^3/uL (0-0.4); EOSINOPHILS % (AUTO) 1 % (1-7); LYMPHOCYTES # (AUTO) 0.99 x10^3/uL (1-3.4); LYMPHOCYTES % (AUTO) 11 % (22-44); MD NO; MEAN CORPUSCULAR HEMOGLOBIN 30.9 pg (27.0-34.8); MEAN CORPUSCULAR HGB CONC 33.3 g/dL (32.4-35.8); MEAN CORPUSCULAR VOLUME 92.6 fL (80-100); MEAN PLATELET VOLUME 6.3 fL (7.4-10.4); MONOCYTES # (AUTO) 0.37 x10^3/uL (0.2-0.8); MONOCYTES % (AUTO) 4 % (2-9); NEUTROPHILS # (AUTO) 7.55 x10^3/uL (1.8-6.8); NEUTROPHILS % (AUTO) 84 % (42-75); PLATELET COUNT 429 x10^3/uL (130-400); RED BLOOD COUNT 3.81 x10^6/uL (3.82-5.3); RED CELL DISTRIBUTION WIDTH 15.2 % (9.6-15.2)
[2019-11-27 14:10] LABS: ALANINE AMINOTRANSFERASE 48 U/L (12-78); ANION GAP 13 mmol/L (5-15); CALCIUM 8.2 mg/dL (8.5-10.1); CHLORIDE 103 mmol/L (98-107)
[2019-11-27 14:14] LABS: ALKALINE PHOSPHATASE 70 U/L (45-117); BILIRUBIN,TOTAL 0.7 mg/dL (0.2-1.0); TOTAL PROTEIN 6.8 g/dL (6.4-8.2); TROPONIN I < 0.015 ng/mL (0.000-0.045)
[2019-11-27] MEDS ORDERED: SODIUM CHLORIDE FLUSH 10ML SYR IVF ONE (14:30)
--- NOTE | 2019-11-27 15:12 | NUR ---
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 brother provided with resources over phone to take to [facility], upon calling brother back he turned his phone off. Pt is able to ambulate without difficulty. Brother did not want his sister back home but pt reports it is her house. Pt informed once she is sobe and able to safely ambualte we will provide taxi voucher. Brother at this time is refusing to pick sister up.
== END 2019-11-27 15:30 | disposition home or self-care (01) ==
LOC: ED 13:38
DX: F10.120 Alcohol abuse with intoxication, uncomplicated (principal); R06.00 Dyspnea, unspecified; R07.89 Other chest pain; I11.9 Hypertensive heart disease without heart failure; E78.5 Hyperlipidemia, unspecified; Y90.0 Blood alcohol level of less than 20 mg/100 ml
CPT/HCPCS: 36415; 71045; 80053; 80307; 84484; 85025; 93005; 99285

== ENCOUNTER 2019-12-14 21:21 | Inpatient (IN) | payer MEDICARE, MEDICAID ==
[~2019-12-14] VITALS: Ht 160 cm; Wt 53.9 kg
[~2019-12-14 21:21] MED LIST changes: +AMOX1TAB12 PO
--- NOTE | 2019-12-14 21:30 | NUR ---
FINANCING ANALYST: CALLED PT NO ANSWER
[2019-12-14] MEDS ORDERED: LORazepam 1MG TABLET ONE (22:49)
--- NOTE | 2019-12-14 22:54 | NUR ---
PT HERE FOR SOB AFTER TAKING MEDICATION TODAY. PT IS HYPERTENSIVE. BUT OTHER VSS. PT MEDICATED WITH ATIVAN. PT AMBULATED TO BATHROOM WITH A STEADY GAIT. PT HAS NO OTHER NEEDS AT THIS TIME. CALL LIGHT IN REACH
[2019-12-14] MEDS ORDERED: LORazepam 1MG TABLET PO ONE (23:00)
--- NOTE | 2019-12-14 23:25 | NUR ---
PT WAS UP TO BATHROOM AGAIN. PT PLACED BACK ON MONITORS. VSS. WAITING FOR LABS TO RESULT
--- NOTE | 2019-12-14 23:56 | NUR ---
PT ASSISTED TO BATHROOM. PT AMBULATED WITH A STEADY GAIT. PT PLACED BACK IN BED AND ON MONITOR.
[2019-12-15 00:02] LABS: MEAN CORPUSCULAR HEMOGLOBIN 31.2 pg (27.0-34.8); MEAN CORPUSCULAR HGB CONC 33.3 g/dL (32.4-35.8); MEAN CORPUSCULAR VOLUME 93.7 fL (80-100); MEAN PLATELET VOLUME 6.2 fL (7.4-10.4); PLATELET COUNT 544 x10^3/uL (130-400); RED BLOOD COUNT 3.97 x10^6/uL (3.82-5.3); RED CELL DISTRIBUTION WIDTH 14.5 % (9.6-15.2)
[2019-12-15 00:14] LABS: ALBUMIN 3.6 g/dL (3.4-5.0); ANION GAP 9 mmol/L (5-15); CALCIUM 8.7 mg/dL (8.5-10.1); CHLORIDE 91 mmol/L (98-107); CREATININE 0.81 mg/dL (0.55-1.02)
[2019-12-15 00:17] LABS: TROPONIN I < 0.015 ng/mL (0.000-0.045)
[2019-12-15] MEDS ORDERED: SODIUM CHLORIDE 0.9% 1,000ML IVBOLUS ONE (01:00)
[2019-12-15 01:04] LABS: BASOPHILS # (AUTO) 0.03 x10^3/uL (0-0.1); BASOPHILS % (AUTO) 0 % (0-1); EOSINOPHILS # (AUTO) 0.05 x10^3/uL (0-0.4); EOSINOPHILS % (AUTO) 0 % (1-7); LYMPHOCYTES # (AUTO) 1.51 x10^3/uL (1-3.4); LYMPHOCYTES % (AUTO) 8 % (22-44); MD SCAN; MONOCYTES # (AUTO) 1.11 x10^3/uL (0.2-0.8); MONOCYTES % (AUTO) 6 % (2-9); NEUTROPHILS # (AUTO) 17.15 x10^3/uL (1.8-6.8); NEUTROPHILS % (AUTO) 86 % (42-75)
[2019-12-15] MEDS ORDERED: LABETALOL 5MG/ML, 20ML IVPush PRN (01:30)
[2019-12-15 02:04] VITALS: BP 158/85
[2019-12-15] MEDS: ACETAMINOPHEN 325 MG TABLET PO PRN ×2 (04:12→23:45)
[2019-12-15] MEDS: HEPARIN 5,000 UNITS/ML, 1ML SQ SCH ×3 (05:54→20:27)
[2019-12-15] MEDS: CARVEDILOL 12.5 MG TABLET PO SCH ×2 (05:55→18:11)
[2019-12-15 07:18] VITALS: BP 114/70
[2019-12-15] MEDS: AMLODIPINE 5 MG TABLET PO SCH ×2 (08:35→20:27)
[2019-12-15] MEDS: CETIRIZINE 10 MG TABLET PO SCH (08:35)
[2019-12-15] MEDS: FERROUS SULFATE 325 MG TABLET PO SCH (08:35)
[2019-12-15] MEDS: BUSPIRONE 10 MG TABLET PO SCH ×3 (08:36→20:27)
[2019-12-15] MEDS: ATORVASTATIN 80 MG TABLET PO SCH (08:36)
[2019-12-15] MEDS: SENNA/DOCUSATE TABLET PO SCH (08:38)
[2019-12-15] MEDS ORDERED: SODIUM CHLORIDE 1 GM TABLET PO SCH (09:00)
[2019-12-15] MEDS: POTASSIUM CHLORIDE 20 MEQ PACKET PO SCH (09:06)
[2019-12-15] MEDS: LISINOPRIL 20 MG TABLET PO SCH ×2 (09:06→20:27)
[2019-12-15 12:07] LABS: MICROSCOPIC NOT IND
[2019-12-15 12:14] VITALS: BP 119/75
[2019-12-15] MEDS: D5%-0.45% NACL 1,000 ML IV SCH (12:49)
[2019-12-15 20:29] VITALS: BP 110/70
[2019-12-16 02:14] VITALS: BP 98/61
[2019-12-16] MEDS: HEPARIN 5,000 UNITS/ML, 1ML SQ SCH ×3 (05:00→20:24)
[2019-12-16] MEDS: CARVEDILOL 12.5 MG TABLET PO SCH ×2 (05:01→17:17)
[2019-12-16 06:02] LABS: BASOPHILS # (AUTO) 0.05 x10^3/uL (0-0.1); BASOPHILS % (AUTO) 1 % (0-1); EOSINOPHILS # (AUTO) 0.03 x10^3/uL (0-0.4); EOSINOPHILS % (AUTO) 0 % (1-7); LYMPHOCYTES # (AUTO) 1.69 x10^3/uL (1-3.4); LYMPHOCYTES % (AUTO) 18 % (22-44); MD NO; MEAN CORPUSCULAR HEMOGLOBIN 30.5 pg (27.0-34.8); MEAN CORPUSCULAR HGB CONC 32.4 g/dL (32.4-35.8); MEAN CORPUSCULAR VOLUME 94.2 fL (80-100); MEAN PLATELET VOLUME 6.2 fL (7.4-10.4); MONOCYTES # (AUTO) 0.76 x10^3/uL (0.2-0.8); MONOCYTES % (AUTO) 8 % (2-9); NEUTROPHILS # (AUTO) 6.93 x10^3/uL (1.8-6.8); NEUTROPHILS % (AUTO) 73 % (42-75); PLATELET COUNT 498 x10^3/uL (130-400); RED BLOOD COUNT 3.68 x10^6/uL (3.82-5.3)
[2019-12-16 06:07] LABS: CHLORIDE 104 mmol/L (98-107)
[2019-12-16 06:12] LABS: ANION GAP 7 mmol/L (5-15); CREATININE 0.66 mg/dL (0.55-1.02)
[2019-12-16 07:51] VITALS: BP 116/61
[2019-12-16] MEDS: LISINOPRIL 20 MG TABLET PO SCH ×2 (08:46→20:25)
[2019-12-16] MEDS: AMLODIPINE 5 MG TABLET PO SCH ×2 (08:46→20:25)
[2019-12-16] MEDS: CETIRIZINE 10 MG TABLET PO SCH (08:46)
[2019-12-16] MEDS: SENNA/DOCUSATE TABLET PO SCH (08:46)
[2019-12-16] MEDS: POTASSIUM CHLORIDE 20 MEQ PACKET PO SCH (08:46)
[2019-12-16] MEDS: FERROUS SULFATE 325 MG TABLET PO SCH (08:46)
[2019-12-16] MEDS: ATORVASTATIN 80 MG TABLET PO SCH (08:46)
[2019-12-16] MEDS: BUSPIRONE 10 MG TABLET PO SCH ×3 (08:46→20:25)
[2019-12-16] MEDS: D5%-0.45% NACL 1,000 ML IV SCH (10:00)
[2019-12-16] MEDS: ACETAMINOPHEN 325 MG TABLET PO PRN ×2 (10:18→17:52)
[2019-12-16 12:37] VITALS: BP 102/62
[2019-12-16] MEDS ORDERED: BUSPIRONE 5 MG TABLET PO ONE (17:30)
[2019-12-16 20:42] VITALS: BP 151/78
[2019-12-17 00:56] VITALS: BP 133/76
[2019-12-17] MEDS: ACETAMINOPHEN 325 MG TABLET PO PRN ×2 (01:05→10:21)
[2019-12-17] MEDS ORDERED: KETOROLAC 30 MG/1 ML ONE (04:29)
[2019-12-17] MEDS ORDERED: KETOROLAC 30 MG/1 ML IVPush PRN (04:30)
[2019-12-17] MEDS: HEPARIN 5,000 UNITS/ML, 1ML SQ SCH ×2 (04:37→11:32)
[2019-12-17] MEDS: CARVEDILOL 12.5 MG TABLET PO SCH (04:38)
[2019-12-17 05:05] LABS: ANION GAP 5 mmol/L (5-15); CALCIUM 8.9 mg/dL (8.5-10.1); CHLORIDE 103 mmol/L (98-107); CREATININE 0.64 mg/dL (0.55-1.02)
[2019-12-17] MEDS: D5%-0.45% NACL 1,000 ML IV SCH (06:00)
[2019-12-17 08:20] VITALS: BP 112/68
[2019-12-17] MEDS: AMLODIPINE 5 MG TABLET PO SCH (08:22)
[2019-12-17] MEDS: LISINOPRIL 20 MG TABLET PO SCH (08:22)
[2019-12-17] MEDS: ATORVASTATIN 80 MG TABLET PO SCH (08:22)
[2019-12-17] MEDS: POTASSIUM CHLORIDE 20 MEQ PACKET PO SCH (08:22)
[2019-12-17] MEDS: BUSPIRONE 10 MG TABLET PO SCH ×2 (08:22→15:37)
[2019-12-17] MEDS: CETIRIZINE 10 MG TABLET PO SCH (08:22)
[2019-12-17] MEDS: SENNA/DOCUSATE TABLET PO SCH (08:22)
[2019-12-17] MEDS: FERROUS SULFATE 325 MG TABLET PO SCH (08:22)
[2019-12-17 14:29] VITALS: BP 124/79
== END 2019-12-17 16:28 | disposition home health service (06) | DRG 641 ==
LOC: ED 23:23 → UNDOADMIN 12-15 00:54 → EDIP 12-15 00:54 → 4WST 12-15 01:49
PROVIDERS: ADMIT Student in an Organized Health Care Education/Training Program; ATTEND Internal Medicine
DX: E87.1 Hypo-osmolality and hyponatremia (principal); I10 Essential (primary) hypertension; D72.829 Elevated white blood cell count, unspecified; F32.9 Major depressive disorder, single episode, unspecified; F41.1 Generalized anxiety disorder; E11.9 Type 2 diabetes mellitus without complications; T43.295A Adverse effect of other antidepressants, initial encounter; E78.5 Hyperlipidemia, unspecified; F10.21 Alcohol dependence, in remission; K70.9 Alcoholic liver disease, unspecified; R63.1 Polydipsia; Y92.89 Other specified places as the place of occurrence of the external cause
CPT/HCPCS: 36415; 71045; 80048; 81003; 82040; 83880; 84295; 84484; 85025; 93005; 99285; G0378; J1644; J1885; J7030; Q0177

== ENCOUNTER 2019-12-17 23:31 | Observation (INO) | payer MEDICARE, MEDICAID ==
[~2019-12-17] VITALS: Ht 160 cm; Wt 49.4 kg
--- NOTE | 2019-12-17 23:35 | NUR ---
pt BIB [facility] from home c/o SOB and anxiety x1 day. pt was D/C from inpatient today for hyponatremia. pt is very anxious but cooperative. ambulatory and no resp distress. spekaing full sentences without difficulty. no family at bedside
[2019-12-18] MEDS ORDERED: LORazepam 1MG TABLET PO ONE
--- NOTE | 2019-12-18 | NUR ---
pt has been ambulated to BR multiple times. speaking full sentences
[2019-12-18 00:20] LABS: BASOPHILS # (AUTO) 0.06 x10^3/uL (0-0.1); BASOPHILS % (AUTO) 1 % (0-1); EOSINOPHILS # (AUTO) 0.04 x10^3/uL (0-0.4); EOSINOPHILS % (AUTO) 0 % (1-7); LYMPHOCYTES % (AUTO) 14 % (22-44); MD NO; MEAN CORPUSCULAR HEMOGLOBIN 31.1 pg (27.0-34.8); MEAN CORPUSCULAR HGB CONC 33.2 g/dL (32.4-35.8); MEAN CORPUSCULAR VOLUME 93.7 fL (80-100); MEAN PLATELET VOLUME 6.2 fL (7.4-10.4); MONOCYTES # (AUTO) 0.63 x10^3/uL (0.2-0.8); MONOCYTES % (AUTO) 6 % (2-9); NEUTROPHILS # (AUTO) 9.18 x10^3/uL (1.8-6.8); NEUTROPHILS % (AUTO) 80 % (42-75); PLATELET COUNT 526 x10^3/uL (130-400); RED BLOOD COUNT 4.17 x10^6/uL (3.82-5.3); RED CELL DISTRIBUTION WIDTH 14.3 % (9.6-15.2)
[2019-12-18 00:27] LABS: ALBUMIN 3.9 g/dL (3.4-5.0); ANION GAP 12 mmol/L (5-15); CHLORIDE 94 mmol/L (98-107); CREATININE 0.74 mg/dL (0.55-1.02)
--- NOTE | 2019-12-18 00:30 | NUR ---
pt ambulated to BR again. pt has urinated on gurney. pt given fresh linens and assited with hygiene
--- NOTE | 2019-12-18 01:10 | NUR ---
report to Scott LARRY for lunch
[2019-12-18] MEDS ORDERED: LORazepam 1MG TABLET ONE (01:19)
--- NOTE | 2019-12-18 01:22 | NUR ---
Break RN:patient hyperventilating / anxious. medicated.
[2019-12-18] MEDS ORDERED: LORazepam 2 MG/ML, 1ML ONE (01:43)
--- NOTE | 2019-12-18 01:59 | NUR ---
pt has urinated on her gurney. fresh linenes applied and pt assisted with hygiene. pt updated on POC
[2019-12-18] MEDS ORDERED: LORazepam 2 MG/ML, 1ML IVPush ONE (02:00)
--- NOTE | 2019-12-18 02:01 | NUR ---
bed assignment recieved. attempting to call report
--- NOTE | 2019-12-18 02:04 | NUR ---
report called to Paulina LARRY
[2019-12-18] MEDS: SODIUM CHLORIDE 0.9% 1,000 ML IV SCH ×2 (02:20→16:35)
[2019-12-18] MEDS ORDERED: ONDANSETRON ODT 4 MG PO PRN (02:30)
[2019-12-18] MEDS ORDERED: ONDANSETRON 2MG/ML, 2ML IVPush PRN (02:30)
[2019-12-18] MEDS ORDERED: OXYcodone IR 5MG TABLET PO PRN (02:30)
[2019-12-18] MEDS ORDERED: hydrALAzine 20 MG/ML, 1ML IVPush PRN (02:30)
[2019-12-18] MEDS ORDERED: POLYETHYLENE GLYCOL 17 GM PACKET PO PRN (02:30)
[2019-12-18] MEDS: BUSPIRONE 10 MG TABLET PO SCH ×4 (02:30→20:20)
[2019-12-18] MEDS ORDERED: ACETAMINOPHEN 325 MG TABLET PO PRN (02:30)
[2019-12-18] MEDS ORDERED: DOCUSATE 100 MG CAPSULE PO PRN (02:30)
[2019-12-18] MEDS ORDERED: BISACODYL 10 MG SUPP PR PRN (02:30)
[2019-12-18] MEDS ORDERED: PROMETHAZINE 25 MG/ML, 1ML IM PRN (02:30)
[2019-12-18] MEDS: ENOXAPARIN 40 MG/0.4 ML SQ SCH (02:35)
[2019-12-18 02:43] VITALS: BP 172/92
[2019-12-18 05:51] VITALS: BP 125/77
[2019-12-18] MEDS: CARVEDILOL 12.5 MG TABLET PO SCH ×2 (05:52→18:21)
[2019-12-18 06:11] LABS: ANION GAP 7 mmol/L (5-15); CALCIUM 9.1 mg/dL (8.5-10.1); CHLORIDE 99 mmol/L (98-107); CREATININE 0.67 mg/dL (0.55-1.02)
[2019-12-18 07:25] VITALS: BP 147/84
[2019-12-18] MEDS: FERROUS SULFATE 325 MG TABLET PO SCH (08:24)
[2019-12-18] MEDS: AMLODIPINE 5 MG TABLET PO SCH ×2 (08:24→20:14)
[2019-12-18] MEDS: CETIRIZINE 10 MG TABLET PO SCH (08:24)
[2019-12-18] MEDS: LISINOPRIL 20 MG TABLET PO SCH ×2 (08:25→20:14)
[2019-12-18] MEDS ORDERED: MAGNESIUM SULFATE/D5W 100 ML IV ONE (09:00)
[2019-12-18 12:30] VITALS: BP 98/60
[2019-12-18 13:22] LABS: ANION GAP 6 mmol/L (5-15); CALCIUM 8.2 mg/dL (8.5-10.1); CHLORIDE 100 mmol/L (98-107); CREATININE 0.76 mg/dL (0.55-1.02)
[2019-12-18 14:44] LABS: SODIUM,URINE RANDOM 25 mmol/L
[2019-12-18 14:50] LABS: OSMOLALITY,URINE 215 mOsm/kg (500-850)
[2019-12-18 18:56] VITALS: BP 110/74
[2019-12-18] MEDS: LORazepam 1MG TABLET PO PRN (19:36)
[2019-12-18] MEDS ORDERED: ATORVASTATIN 20 MG TABLET PO SCH (21:00)
[2019-12-18] MEDS ORDERED: ATORVASTATIN 80 MG TABLET PO SCH (21:00)
[2019-12-18 21:25] LABS: ANION GAP 5 mmol/L (5-15); CALCIUM 8.4 mg/dL (8.5-10.1); CHLORIDE 101 mmol/L (98-107); CREATININE 0.68 mg/dL (0.55-1.02)
[2019-12-19 00:36] VITALS: BP 123/76
[2019-12-19] MEDS: ENOXAPARIN 40 MG/0.4 ML SQ SCH (02:34)
[2019-12-19 05:33] VITALS: BP 125/77
[2019-12-19] MEDS: CARVEDILOL 12.5 MG TABLET PO SCH (05:34)
[2019-12-19] MEDS: LORazepam 1MG TABLET PO PRN (05:34)
[2019-12-19 05:54] LABS: BASOPHILS # (AUTO) 0.04 x10^3/uL (0-0.1); BASOPHILS % (AUTO) 1 % (0-1); EOSINOPHILS % (AUTO) 2 % (1-7); LYMPHOCYTES # (AUTO) 1.93 x10^3/uL (1-3.4); LYMPHOCYTES % (AUTO) 28 % (22-44); MD NO; MEAN CORPUSCULAR HEMOGLOBIN 30.9 pg (27.0-34.8); MEAN CORPUSCULAR HGB CONC 32.8 g/dL (32.4-35.8); MEAN PLATELET VOLUME 6.5 fL (7.4-10.4); MONOCYTES # (AUTO) 0.58 x10^3/uL (0.2-0.8); MONOCYTES % (AUTO) 9 % (2-9); NEUTROPHILS # (AUTO) 4.15 x10^3/uL (1.8-6.8); NEUTROPHILS % (AUTO) 61 % (42-75); PLATELET COUNT 447 x10^3/uL (130-400); RED BLOOD COUNT 3.97 x10^6/uL (3.82-5.3); RED CELL DISTRIBUTION WIDTH 14.8 % (9.6-15.2)
[2019-12-19 05:59] LABS: ALBUMIN 3.3 g/dL (3.4-5.0); ANION GAP 7 mmol/L (5-15); CALCIUM 8.8 mg/dL (8.5-10.1); CHLORIDE 104 mmol/L (98-107)
[2019-12-19 06:11] LABS: ALANINE AMINOTRANSFERASE 52 U/L (12-78); ALKALINE PHOSPHATASE 59 U/L (45-117); BILIRUBIN,TOTAL 0.5 mg/dL (0.2-1.0); CHOL/HDL RATIO 1.7; CHOLESTEROL, TOTAL 125 mg/dL (140-239); CREATININE 0.64 mg/dL (0.55-1.02); HDL CHOL % 60 % (28-40); HDL CHOLESTEROL (DIRECT) 75 mg/dL (40-60); LDL CHOLESTEROL,CALCULATED 40 mg/dL (54-169); LDL/HDL RATIO 0.5 (0.5-3.0); TOTAL PROTEIN 6.4 g/dL (6.4-8.2); TRIGLYCERIDES 52 mg/dL (50-200); VLDL CHOLESTEROL 10 mg/dL (0-25)
[2019-12-19 08:56] VITALS: BP 97/61
[2019-12-19 08:58] VITALS: BP 107/66
[2019-12-19] MEDS: FERROUS SULFATE 325 MG TABLET PO SCH (08:59)
[2019-12-19] MEDS: CETIRIZINE 10 MG TABLET PO SCH (08:59)
[2019-12-19] MEDS: AMLODIPINE 5 MG TABLET PO SCH (08:59)
[2019-12-19] MEDS: BUSPIRONE 10 MG TABLET PO SCH ×2 (08:59→09:02)
[2019-12-19] MEDS: LISINOPRIL 20 MG TABLET PO SCH (08:59)
[2019-12-19 12:53] VITALS: BP 123/75
[2019-12-19] MEDS ORDERED: SODI1TAB PO (13:40)
[2019-12-19] MEDS ORDERED: BUSP7.5T5 PO (13:44)
[2019-12-19] MEDS ORDERED: BUSPIRONE 10 MG TABLET PO SCH (16:00)
== END 2019-12-19 16:19 | disposition home health service (06) ==
LOC: ED 23:43 → INTOOBSV 12-18 02:04 → EDIP 12-18 02:04 → 3N 12-18 02:20
PROVIDERS: ADMIT Internal Medicine; ATTEND Internal Medicine
DX: E87.1 Hypo-osmolality and hyponatremia (principal); F41.8 Other specified anxiety disorders; E87.2 Acidosis; I10 Essential (primary) hypertension; E11.9 Type 2 diabetes mellitus without complications; E78.5 Hyperlipidemia, unspecified; R54 Age-related physical debility; D72.829 Elevated white blood cell count, unspecified; F10.11 Alcohol abuse, in remission; Z79.899 Other long term (current) drug therapy; Z87.891 Personal history of nicotine dependence
CPT/HCPCS: 36415; 80048; 80053; 80061; 82040; 83036; 83735; 83930; 83935; 84300; 84443; 85025; 93005; 96361; 96365; 96372; 96375; 97163; 97165; 99284; G0378; J1650; J2060; J7030; Q0177; 96374; 99285

== ENCOUNTER 2020-01-02 16:29 | Emergency (ER) | payer MEDICARE, MEDICAID ==
[~2020-01-02] VITALS: Ht 160 cm; Wt 54.2 kg
[2020-01-02 17:14] LABS: BASOPHILS # (AUTO) 0.02 x10^3/uL (0-0.1); BASOPHILS % (AUTO) 0 % (0-1); EOSINOPHILS # (AUTO) 0.05 x10^3/uL (0-0.4); EOSINOPHILS % (AUTO) 1 % (1-7); LYMPHOCYTES # (AUTO) 1.74 x10^3/uL (1-3.4); LYMPHOCYTES % (AUTO) 21 % (22-44); MD NO; MEAN CORPUSCULAR HEMOGLOBIN 30.6 pg (27.0-34.8); MEAN CORPUSCULAR HGB CONC 32.9 g/dL (32.4-35.8); MEAN CORPUSCULAR VOLUME 92.8 fL (80-100); MEAN PLATELET VOLUME 6.4 fL (7.4-10.4); MONOCYTES # (AUTO) 0.64 x10^3/uL (0.2-0.8); MONOCYTES % (AUTO) 8 % (2-9); NEUTROPHILS # (AUTO) 6.03 x10^3/uL (1.8-6.8); NEUTROPHILS % (AUTO) 71 % (42-75); PLATELET COUNT 448 x10^3/uL (130-400); RED BLOOD COUNT 3.85 x10^6/uL (3.82-5.3)
[2020-01-02 17:21] LABS: ALBUMIN 3.6 g/dL (3.4-5.0); ANION GAP 7 mmol/L (5-15); CHLORIDE 107 mmol/L (98-107)
[2020-01-02 17:27] LABS: ALANINE AMINOTRANSFERASE 36 U/L (12-78); ALKALINE PHOSPHATASE 66 U/L (45-117); BILIRUBIN,TOTAL 0.3 mg/dL (0.2-1.0); CREATININE 0.69 mg/dL (0.55-1.02); TOTAL PROTEIN 6.9 g/dL (6.4-8.2); TROPONIN I < 0.015 ng/mL (0.000-0.045)
--- NOTE | 2020-01-02 17:40 | NUR ---
WITH REASSESSMENT. VERY TREMULOUS.INCONTINENT X 2 (APPEARS TO BE QUITE ANXIOUS) PROVIDER MADE AWARE
[2020-01-02] MEDS ORDERED: LORazepam 2 MG/ML, 1ML ONE (18:17)
[2020-01-02 18:20] VITALS: BP 163/79
--- NOTE | 2020-01-02 18:20 | NUR ---
MEDICATED PER EMAR-PLAN TO D/C VIA BROTHER
[2020-01-02] MEDS ORDERED: LORazepam 2 MG/ML, 1ML IVPush ONE (18:30)
--- NOTE | 2020-01-02 19:03 | NUR ---
POST ATIVAN. PATIENT MUCH IMPROVED. TRMORS GONE. THOUGHT PROCESS MORE CLEAR DISCHARGED AFTER ROAD TEST AND PO CHALLENGE
== END 2020-01-02 19:05 | disposition home or self-care (01) ==
LOC: ED 17:19
DX: R42 Dizziness and giddiness (principal); G62.1 Alcoholic polyneuropathy; R20.2 Paresthesia of skin; R94.31 Abnormal electrocardiogram [ECG] [EKG]; R07.9 Chest pain, unspecified; E78.5 Hyperlipidemia, unspecified; E11.9 Type 2 diabetes mellitus without complications; I10 Essential (primary) hypertension
CPT/HCPCS: 36415; 71045; 80053; 80307; 83735; 84484; 85025; 93005; 96374; 99285; J2060

== ENCOUNTER 2020-10-13 15:31 | Observation (INO) | payer MEDICARE ==
[~2020-10-13] VITALS: Ht 160 cm; Wt 66.2 kg
[~2020-10-13 15:31] MED LIST changes: -FOLI-17 PO; +FOLI1TAB32 PO
--- NOTE | 2020-10-13 16:03 | NUR ---
This is a 70 yo female bib [facility] c/o dizziness since July. Pt dx'd with vertigo but has not been taking the meclizine prescribed to her b/c it "makes it worse". Pt seen here yesterday and states "they wanted me to stay and said I was really sick, but I didn't want to stay." Pt up to restroom and back to [facility]. Steady upon ambulation. Pt on cont BP, cardiac and SPO2 monitors. Report to primary RN Martha.
[2020-10-13] MEDS ORDERED: MECLIZINE CHEWABLE 25 MG TAB PO ONE (16:30)
[2020-10-13] MEDS ORDERED: MECLIZINE CHEWABLE 25 MG TAB ONE (16:39)
[2020-10-13 16:59] LABS: ALANINE AMINOTRANSFERASE 34 U/L (12-78); ALBUMIN 3.8 g/dL (3.4-5.0); ANION GAP 9 mmol/L (5-15); CALCIUM 9.3 mg/dL (8.5-10.1); CHLORIDE 92 mmol/L (98-107)
[2020-10-13 17:00] LABS: BASOPHILS % (AUTO) 0 % (0-1); EOSINOPHILS % (AUTO) 1 % (1-7); LYMPHOCYTES % (AUTO) 12 % (22-44); MEAN CORPUSCULAR HEMOGLOBIN 30.2 pg (27.0-34.8); MEAN PLATELET VOLUME 7.1 fL (7.4-10.4); MONOCYTES % (AUTO) 7 % (2-9); NEUTROPHILS % (AUTO) 81 % (42-75); PLATELET COUNT 358 x10^3/uL (130-400); RED BLOOD COUNT 4.62 x10^6/uL (3.82-5.3); RED CELL DISTRIBUTION WIDTH 14.3 % (9.6-15.2)
[2020-10-13 17:04] LABS: ALKALINE PHOSPHATASE 92 U/L (45-117); BILIRUBIN,TOTAL 0.5 mg/dL (0.2-1.0); CREATININE 0.76 mg/dL (0.55-1.02); TOTAL PROTEIN 7.6 g/dL (6.4-8.2); TROPONIN I < 0.015 ng/mL (0.000-0.045)
[2020-10-13 17:06] LABS: MICROSCOPIC NOT IND
--- NOTE | 2020-10-13 18:06 | NUR ---
PT AMBULATES STEADILY.
[2020-10-13] MEDS ORDERED: SODIUM CHLORIDE 0.9% 1,000 ML IV ONE (18:30)
[2020-10-13] MEDS ORDERED: SODIUM CHLORIDE FLUSH 10ML SYR IVF PRN (18:30)
[2020-10-13] MEDS ORDERED: LORazepam 2 MG/ML, 1ML ONE ×2 (18:53→19:01)
[2020-10-13] MEDS: LORazepam 2 MG/ML, 1ML IVPush PRN ×2 (18:57→19:38)
--- NOTE | 2020-10-13 19:20 | NUR ---
PT PULLED OUT IV. PT STATES "IF I DON'T GET MORE TRANQUILIZER I AM LEAVING". PT REDIRECTED BACK TO ROOM, PT EDUCATED ON NEXT TIME SHE CAN RECEIVE ATIVAN AND IMPORTANCE OF NOT PULLING OUT IV. DR. CHAMBERLAIN NOTIFIED AND AT BEDSIDE FOR FURTHER EDUCTATION ON RISKS OF LEAVING AMA. PT AGREEABLE TO STAYING.
[2020-10-13 20:54] VITALS: BP 153/91
[2020-10-13] MEDS ORDERED: ACETAMINOPHEN 325 MG TABLET PO PRN (21:30)
[2020-10-13] MEDS ORDERED: PROMETHAZINE 25 MG/ML, 1ML IM PRN (21:30)
[2020-10-13] MEDS ORDERED: POLYETHYLENE GLYCOL 17 GM PACKET PO PRN (21:30)
[2020-10-13] MEDS ORDERED: OXYcodone IR 5MG TABLET PO PRN (21:30)
[2020-10-13] MEDS ORDERED: ONDANSETRON 2MG/ML, 2ML IVPush PRN (21:30)
[2020-10-13] MEDS ORDERED: BISACODYL 10 MG SUPP PR PRN (21:30)
[2020-10-13] MEDS ORDERED: DOCUSATE 100 MG CAPSULE PO PRN (21:30)
[2020-10-13] MEDS ORDERED: hydrALAzine 20 MG/ML, 1ML IVPush PRN (21:30)
[2020-10-13] MEDS ORDERED: ONDANSETRON ODT 4 MG PO PRN (21:30)
[2020-10-13] MEDS ORDERED: ENOXAPARIN 40 MG/0.4 ML SQ SCH (21:34)
[2020-10-13] MEDS ORDERED: MECL-101 PO (21:57)
[2020-10-13] MEDS ORDERED: FLUO20CA23 PO (21:57)
[2020-10-13] MEDS ORDERED: LORA-446 PO (21:57)
[2020-10-13] MEDS ORDERED: SODI1TAB PO (21:59)
[2020-10-13] MEDS ORDERED: ATORVASTATIN 40 MG TABLET PO SCH (22:00)
[2020-10-13] MEDS ORDERED: MECLIZINE 25 MG TABLET PO PRN (22:00)
[2020-10-13] MEDS: SODIUM CHLORIDE 0.9% 1,000 ML IV SCH (22:03)
[2020-10-13] MEDS: LISINOPRIL 20 MG TABLET PO SCH (22:06)
[2020-10-13] MEDS: BUSPIRONE 5 MG TABLET PO SCH (22:06)
[2020-10-13] MEDS ORDERED: LORazepam 1MG TABLET PO PRN (23:30)
[2020-10-13] MEDS: SODIUM CHLORIDE 1 GM TABLET PO SCH (23:31)
[2020-10-13 23:36] LABS: ANION GAP 9 mmol/L (5-15); CALCIUM 8.6 mg/dL (8.5-10.1); CHLORIDE 98 mmol/L (98-107); CREATININE 0.54 mg/dL (0.55-1.02)
[2020-10-14 00:24] VITALS: BP 138/89
[2020-10-14 05:20] LABS: BASOPHILS % (AUTO) 0 % (0-1); EOSINOPHILS % (AUTO) 2 % (1-7); LYMPHOCYTES % (AUTO) 16 % (22-44); MEAN CORPUSCULAR HEMOGLOBIN 30.3 pg (27.0-34.8); MEAN CORPUSCULAR HGB CONC 33.4 g/dL (32.4-35.8); MEAN PLATELET VOLUME 7.3 fL (7.4-10.4); MONOCYTES % (AUTO) 7 % (2-9); NEUTROPHILS % (AUTO) 75 % (42-75); PLATELET COUNT 330 x10^3/uL (130-400); RED BLOOD COUNT 4.23 x10^6/uL (3.82-5.3)
[2020-10-14] MEDS: CARVEDILOL 12.5 MG TABLET PO SCH ×2 (05:21→16:59)
[2020-10-14 05:31] LABS: CHLORIDE 101 mmol/L (98-107)
[2020-10-14 06:04] LABS: ANION GAP 7 mmol/L (5-15); CALCIUM 8.2 mg/dL (8.5-10.1); CHOL/HDL RATIO 1.6; CHOLESTEROL, TOTAL 146 mg/dL (140-239); HDL CHOL % 64 % (28-40); HDL CHOLESTEROL (DIRECT) 94 mg/dL (40-60); LDL CHOLESTEROL,CALCULATED 39 mg/dL (54-169); LDL/HDL RATIO 0.4 (0.5-3.0); TRIGLYCERIDES 65 mg/dL (50-200); VLDL CHOLESTEROL 13 mg/dL (0-25)
[2020-10-14 07:18] VITALS: BP 117/77
[2020-10-14] MEDS: SODIUM CHLORIDE 1 GM TABLET PO SCH (08:07)
[2020-10-14] MEDS: SODIUM CHLORIDE 0.9% 1,000 ML IV SCH (08:08)
[2020-10-14] MEDS: BUSPIRONE 5 MG TABLET PO SCH ×2 (08:08→16:59)
[2020-10-14] MEDS: LISINOPRIL 20 MG TABLET PO SCH (08:08)
[2020-10-14] MEDS ORDERED: MULTIVITAMIN 1 TABLET PO SCH (09:00)
[2020-10-14] MEDS ORDERED: CETIRIZINE 10 MG TABLET PO SCH (09:00)
[2020-10-14] MEDS ORDERED: FOLIC ACID 1 MG TABLET PO SCH (09:00)
[2020-10-14] MEDS ORDERED: THIAMINE 100MG TABLET PO SCH (09:00)
[2020-10-14] MEDS: THIAMINE 100MG TABLET PO SCH ×2 (09:32→16:59)
[2020-10-14 11:18] LABS: ANION GAP 8 mmol/L (5-15); CALCIUM 8.6 mg/dL (8.5-10.1); CHLORIDE 106 mmol/L (98-107); CREATININE 0.61 mg/dL (0.55-1.02)
[2020-10-14 13:23] VITALS: BP 123/77
[2020-10-14] MEDS ORDERED: THIA100T67 PO ×2 (17:07)
[2020-10-14] MEDS ORDERED: FOLI1TAB32 PO (17:07)
[2020-10-14] MEDS ORDERED: MULT-482 PO (17:07)
== END 2020-10-14 18:02 | disposition home or self-care (01) ==
LOC: ED 18:19 → EDIP 20:18 → INTOOBSV 20:18 → 4WST 20:47
PROVIDERS: ADMIT Internal Medicine; ATTEND Internal Medicine
DX: R42 Dizziness and giddiness (principal); E87.1 Hypo-osmolality and hyponatremia; I10 Essential (primary) hypertension; E78.5 Hyperlipidemia, unspecified; F41.8 Other specified anxiety disorders; F09 Unspecified mental disorder due to known physiological condition; F10.21 Alcohol dependence, in remission; G90.8 Other disorders of autonomic nervous system; Z79.899 Other long term (current) drug therapy
CPT/HCPCS: 36415; 70450; 70551; 71045; 80048; 80053; 80061; 80320; 81003; 83036; 83735; 83930; 83935; 84100; 84300; 84443; 84484; 85025; 93005; 96361; 96372; 96374; 96376; 97161; 97166; 99285; G0378; J1650; J2060; J7030; Q0177; G0480

== ENCOUNTER 2020-11-02 17:10 | Inpatient (IN) | payer MEDICARE ==
[~2020-11-02] VITALS: Ht 160 cm; Wt 58.9 kg
[~2020-11-02 17:10] MED LIST changes: +FLUO20CA23 PO; +LORA-446 PO; +MECL-101 PO; +MULT-482 PO; +POTASSIUM CHLORIDE 20 MEQ PACKET PO ONE
[2020-11-02] MEDS ORDERED: SODIUM CHLORIDE 0.9% 1,000ML IVBOLUS ONE (18:00)
[2020-11-02] MEDS ORDERED: SODIUM CHLORIDE FLUSH 10ML SYR IVF ONE (18:00)
[2020-11-02 18:13] LABS: BASOPHILS % (AUTO) 0 % (0-1); EOSINOPHILS % (AUTO) 0 % (1-7); LYMPHOCYTES % (AUTO) 9 % (22-44); MEAN CORPUSCULAR HEMOGLOBIN 30.6 pg (27.0-34.8); MEAN CORPUSCULAR HGB CONC 35.1 g/dL (32.4-35.8); MEAN PLATELET VOLUME 7.1 fL (7.4-10.4); MONOCYTES % (AUTO) 5 % (2-9); NEUTROPHILS % (AUTO) 86 % (42-75); PLATELET COUNT 333 x10^3/uL (130-400); RED BLOOD COUNT 3.23 x10^6/uL (3.82-5.3); RED CELL DISTRIBUTION WIDTH 13.3 % (9.6-15.2)
[2020-11-02 18:15] LABS: ALANINE AMINOTRANSFERASE 48 U/L (12-78); ALBUMIN 2.9 g/dL (3.4-5.0); ANION GAP 10 mmol/L (5-15); CALCIUM 8.2 mg/dL (8.5-10.1); CHLORIDE 90 mmol/L (98-107)
[2020-11-02 18:17] LABS: ALKALINE PHOSPHATASE 55 U/L (45-117); BILIRUBIN,TOTAL 0.4 mg/dL (0.2-1.0); TOTAL PROTEIN 5.8 g/dL (6.4-8.2)
[2020-11-02] MEDS ORDERED: ONDANSETRON ODT 4 MG ONE (19:11)
[2020-11-02 19:24] LABS: MICROSCOPIC NOT IND
[2020-11-02] MEDS ORDERED: POTASSIUM CHLORIDE 40 MEQ in LACTATED RINGERS 1,000 ML IV SCH (19:30)
[2020-11-02] MEDS ORDERED: ONDANSETRON ODT 4 MG PO ONE (19:30)
[2020-11-02 19:35] LABS: AMPHETAMINE SCREEN, URINE Negative (Negative); BARBITURATE SCREEN, URINE Negative (Negative); BENZODIAZEPINE SCREEN, URINE Negative (Negative); CANNABINOID SCREEN, URINE Negative (Negative); COCAINE SCREEN, URINE Negative (Negative); METHADONE SCREEN, URINE Negative (Negative); OPIATE SCREEN, URINE Negative (Negative)
--- NOTE | 2020-11-02 20:33 | NUR ---
PT LAYING IN BED, A/OX3, ALL NEEDS IN REACH, CALL [facility] IN [facility], VSS, PT STATES "I HAVE NAUSEA IN MY CHEST", THIS RN ASKED PT WHAT WAS WRONG AND PT SAID "I FEEL LIKE DYING"
[2020-11-02] MEDS ORDERED: BUSP7.5T5 PO (20:39)
[2020-11-02] MEDS ORDERED: CHOL20009 PO (20:43)
[2020-11-02] MEDS ORDERED: DOXE25CA PO (20:43)
[2020-11-02] MEDS ORDERED: FERR324T5 PO (20:43)
[2020-11-02] MEDS ORDERED: SODI1TAB PO (20:50)
[2020-11-02] MEDS ORDERED: ATOR10TA9 PO (20:50)
[2020-11-02] MEDS ORDERED: LISI-170 PO (20:50)
[2020-11-02] MEDS ORDERED: ACAM333T7 PO (20:50)
[2020-11-02] MEDS ORDERED: MECLIZINE 25 MG TABLET PO PRN (21:00)
[2020-11-02] MEDS ORDERED: NS + 40MEQ KCL 1,000 ML IV ONE (21:01)
--- NOTE | 2020-11-02 21:05 | NUR ---
PT STATED SHE FEELS LIKE SHE IS DYING, PTS VITALS WERE ALL STABLE, TRANSITIONAL LIVING SPECIALIST ATTACHED AND WAS READING SINUS RYTHM, HOSPITALIST WAS AT BEDSIDE FOR ADMISSION INTERVIEW
[2020-11-02] MEDS ORDERED: MECLIZINE CHEWABLE 25 MG TAB PO PRN (21:30)
[2020-11-02] MEDS ORDERED: BISACODYL 10 MG SUPP PR PRN (21:30)
[2020-11-02] MEDS ORDERED: POLYETHYLENE GLYCOL 17 GM PACKET PO PRN (21:30)
[2020-11-02 22:12] VITALS: BP 158/87
[2020-11-02 22:16] LABS: TROPONIN I < 0.015 ng/mL (0.000-0.045)
[2020-11-02] MEDS: ATORVASTATIN 10 MG TABLET PO SCH (23:41)
[2020-11-02] MEDS: BUSPIRONE 10 MG TABLET PO SCH (23:41)
[2020-11-02] MEDS: THIAMINE 100MG TABLET PO SCH (23:41)
[2020-11-02] MEDS: HEPARIN 5,000 UNITS/ML, 1ML SQ SCH (23:41)
[2020-11-03] MEDS: ONDANSETRON ODT 4 MG PO PRN ×2 (00:34→12:47)
[2020-11-03] MEDS ORDERED: PROMETHAZINE 25 MG/ML, 1ML IM ONE (02:00)
[2020-11-03 02:01] VITALS: BP 162/73
[2020-11-03] MEDS: SODIUM CHLORIDE 0.9% 1,000 ML IV SCH ×3 (02:34→20:26)
[2020-11-03 02:52] LABS: TROPONIN I < 0.015 ng/mL (0.000-0.045)
[2020-11-03 05:12] LABS: POTASSIUM,URINE RANDOM 11 mmol/L; SODIUM,URINE RANDOM 6 mmol/L
[2020-11-03 05:16] LABS: CHLORIDE,URINE RANDOM < 10 mmol/L
[2020-11-03] MEDS ORDERED: POTASSIUM CHLORIDE 20 MEQ PACKET PO ONE (06:00)
[2020-11-03 06:07] LABS: BASOPHILS % (AUTO) 0 % (0-1); EOSINOPHILS % (AUTO) 0 % (1-7); LYMPHOCYTES % (AUTO) 9 % (22-44); MEAN CORPUSCULAR HEMOGLOBIN 31.3 pg (27.0-34.8); MEAN CORPUSCULAR HGB CONC 35.4 g/dL (32.4-35.8); MEAN PLATELET VOLUME 6.9 fL (7.4-10.4); MONOCYTES % (AUTO) 6 % (2-9); NEUTROPHILS % (AUTO) 85 % (42-75); PLATELET COUNT 318 x10^3/uL (130-400); RED BLOOD COUNT 2.83 x10^6/uL (3.82-5.3); RED CELL DISTRIBUTION WIDTH 13.3 % (9.6-15.2)
[2020-11-03 06:17] LABS: ANION GAP 11 mmol/L (5-15); CALCIUM 7.6 mg/dL (8.5-10.1); CHLORIDE 93 mmol/L (98-107)
[2020-11-03] MEDS: ACETAMINOPHEN 325 MG TABLET PO PRN (08:53)
[2020-11-03] MEDS: BUSPIRONE 10 MG TABLET PO SCH ×3 (08:54→20:25)
[2020-11-03] MEDS: FOLIC ACID 1 MG TABLET PO SCH (08:54)
[2020-11-03] MEDS: CHOLECALCIFEROL 1,000 UNIT TABLET PO SCH (08:54)
[2020-11-03] MEDS: FLUOXETINE HCL 20 MG CAPSULE PO SCH (08:54)
[2020-11-03] MEDS: FERROUS SULFATE 325 MG TABLET PO SCH (08:54)
[2020-11-03] MEDS: THIAMINE 100MG TABLET PO SCH ×3 (08:54→20:25)
[2020-11-03] MEDS: MULTIVITAMIN 1 TABLET PO SCH (08:54)
[2020-11-03] MEDS: HEPARIN 5,000 UNITS/ML, 1ML SQ SCH ×2 (08:55→17:06)
[2020-11-03] MEDS: SENNA/DOCUSATE TABLET PO SCH (08:55)
[2020-11-03] MEDS ORDERED: POTASSIUM CHLORIDE 40 MEQ in SODIUM CHLORIDE 0.9% 500 ML IV ONE (09:30)
[2020-11-03 10:00] VITALS: BP 164/92
[2020-11-03] MEDS ORDERED: FAMOTIDINE 20 MG TABLET PO SCH (11:30)
[2020-11-03 13:26] LABS: ANION GAP 10 mmol/L (5-15); CHLORIDE 95 mmol/L (98-107); CREATININE 0.58 mg/dL (0.55-1.02)
[2020-11-03 14:56] VITALS: BP 149/81
[2020-11-03] MEDS: LORazepam 1MG TABLET PO PRN (18:22)
[2020-11-03 19:34] VITALS: BP 164/83
[2020-11-03] MEDS: ATORVASTATIN 10 MG TABLET PO SCH (20:26)
[2020-11-03] MEDS ORDERED: DIPHENHYDRAMINE 25 MG CAPSULE PO ONE (23:00)
[2020-11-04 00:30] VITALS: BP 165/92
[2020-11-04] MEDS: HEPARIN 5,000 UNITS/ML, 1ML SQ SCH ×3 (00:53→17:01)
[2020-11-04] MEDS: SODIUM CHLORIDE 0.9% 1,000 ML IV SCH (01:30)
[2020-11-04] MEDS: ACETAMINOPHEN 325 MG TABLET PO PRN (02:58)
[2020-11-04 06:40] VITALS: BP 156/88
[2020-11-04] MEDS: FLUOXETINE HCL 20 MG CAPSULE PO SCH (08:53)
[2020-11-04] MEDS: BUSPIRONE 10 MG TABLET PO SCH ×3 (08:54→21:22)
[2020-11-04] MEDS: THIAMINE 100MG TABLET PO SCH (08:54)
[2020-11-04] MEDS: MULTIVITAMIN 1 TABLET PO SCH (08:54)
[2020-11-04] MEDS: CHOLECALCIFEROL 1,000 UNIT TABLET PO SCH (08:54)
[2020-11-04] MEDS: FERROUS SULFATE 325 MG TABLET PO SCH (08:54)
[2020-11-04] MEDS: FOLIC ACID 1 MG TABLET PO SCH ×2 (08:59→11:00)
[2020-11-04] MEDS: SENNA/DOCUSATE TABLET PO SCH (08:59)
[2020-11-04] MEDS ORDERED: FAMOTIDINE 20 MG TABLET PO SCH (09:00)
[2020-11-04 10:04] LABS: BASOPHILS % (AUTO) 0 % (0-1); EOSINOPHILS % (AUTO) 1 % (1-7); LYMPHOCYTES % (AUTO) 17 % (22-44); MEAN CORPUSCULAR HEMOGLOBIN 30.4 pg (27.0-34.8); MEAN CORPUSCULAR HGB CONC 34.8 g/dL (32.4-35.8); MEAN PLATELET VOLUME 6.9 fL (7.4-10.4); MONOCYTES % (AUTO) 6 % (2-9); NEUTROPHILS % (AUTO) 76 % (42-75); PLATELET COUNT 373 x10^3/uL (130-400); RED BLOOD COUNT 2.81 x10^6/uL (3.82-5.3); RED CELL DISTRIBUTION WIDTH 13.2 % (9.6-15.2)
[2020-11-04 10:13] LABS: ANION GAP 6 mmol/L (5-15); CALCIUM 8.2 mg/dL (8.5-10.1); CHLORIDE 89 mmol/L (98-107); CREATININE 0.56 mg/dL (0.55-1.02)
[2020-11-04] MEDS ORDERED: MAGNESIUM SULFATE PMX 4GM/100M 100 ML IVPB ONE (11:00)
[2020-11-04] MEDS ORDERED: POTASSIUM PHOSPHATE 44 MEQ in SODIUM CHLORIDE 0.9% 500 ML IV ONE (11:00)
[2020-11-04] MEDS ORDERED: LORazepam 2 MG/ML, 1ML IV PRN ×5 (11:00)
[2020-11-04] MEDS ORDERED: LORazepam 0.5MG TABLET PO PRN (11:00)
[2020-11-04] MEDS ORDERED: LORazepam 1MG TABLET PO PRN ×4 (11:00)
[2020-11-04] MEDS ORDERED: POTASSIUM CHLORIDE 40 MEQ in SODIUM CHLORIDE 0.9% 500 ML IV ONE (12:00)
[2020-11-04 13:56] VITALS: BP 129/77
[2020-11-04] MEDS: LISINOPRIL 20 MG TABLET PO SCH (14:23)
[2020-11-04] MEDS: PANTOPRAZOLE 40 MG IV IVPush SCH ×2 (14:23→23:51)
[2020-11-04] MEDS: SUCRALFATE 1 GM/10 ML UDC PO SCH ×3 (14:23→21:22)
[2020-11-04] MEDS: SODIUM CHLORIDE 1 GM TABLET PO SCH ×2 (14:23→21:22)
[2020-11-04] MEDS: D5%-0.9% NACL 1,000 ML IV SCH (17:01)
[2020-11-04] MEDS: LORazepam 1MG TABLET PO PRN (17:41)
[2020-11-04 19:33] LABS: ANION GAP 9 mmol/L (5-15); CALCIUM 7.8 mg/dL (8.5-10.1); CHLORIDE 93 mmol/L (98-107); CREATININE 0.71 mg/dL (0.55-1.02)
[2020-11-04 19:58] VITALS: BP 135/80
[2020-11-04] MEDS: DOXEPIN 25 MG CAPSULE PO SCH (21:22)
[2020-11-04] MEDS: ATORVASTATIN 10 MG TABLET PO SCH (21:23)
[2020-11-05] MEDS: HEPARIN 5,000 UNITS/ML, 1ML SQ SCH ×3 (00:50→16:42)
[2020-11-05 03:55] VITALS: BP 135/84
[2020-11-05 05:30] LABS: BASOPHILS % (AUTO) 1 % (0-1); EOSINOPHILS % (AUTO) 3 % (1-7); LYMPHOCYTES % (AUTO) 32 % (22-44); MEAN CORPUSCULAR HEMOGLOBIN 30.7 pg (27.0-34.8); MEAN CORPUSCULAR HGB CONC 34.4 g/dL (32.4-35.8); MEAN PLATELET VOLUME 6.6 fL (7.4-10.4); MONOCYTES % (AUTO) 8 % (2-9); NEUTROPHILS % (AUTO) 57 % (42-75); PLATELET COUNT 389 x10^3/uL (130-400); RED BLOOD COUNT 2.68 x10^6/uL (3.82-5.3); RED CELL DISTRIBUTION WIDTH 13.5 % (9.6-15.2)
[2020-11-05 05:37] LABS: ANION GAP 6 mmol/L (5-15); CALCIUM 7.7 mg/dL (8.5-10.1); CHLORIDE 96 mmol/L (98-107)
[2020-11-05 05:38] LABS: CREATININE 0.61 mg/dL (0.55-1.02)
[2020-11-05 07:10] VITALS: BP 121/78
[2020-11-05] MEDS: LISINOPRIL 20 MG TABLET PO SCH (08:49)
[2020-11-05] MEDS: SUCRALFATE 1 GM/10 ML UDC PO SCH ×4 (08:49→20:17)
[2020-11-05] MEDS: FERROUS SULFATE 325 MG TABLET PO SCH (08:50)
[2020-11-05] MEDS: SODIUM CHLORIDE 1 GM TABLET PO SCH ×2 (08:50→20:17)
[2020-11-05] MEDS: SENNA/DOCUSATE TABLET PO SCH (08:50)
[2020-11-05] MEDS: CHOLECALCIFEROL 1,000 UNIT TABLET PO SCH (08:50)
[2020-11-05] MEDS: MULTIVITAMIN 1 TABLET PO SCH (08:50)
[2020-11-05] MEDS: BUSPIRONE 10 MG TABLET PO SCH ×3 (08:50→20:17)
[2020-11-05] MEDS: FLUOXETINE HCL 20 MG CAPSULE PO SCH (08:50)
[2020-11-05] MEDS: FOLIC ACID 1 MG TABLET PO SCH ×2 (08:51)
[2020-11-05] MEDS: THIAMINE 100MG TABLET PO SCH (08:51)
[2020-11-05] MEDS: D5%-0.9% NACL 1,000 ML IV SCH (09:33)
[2020-11-05] MEDS: PANTOPRAZOLE 40 MG IV IVPush SCH ×2 (11:20→23:11)
[2020-11-05 14:00] VITALS: BP 128/68
[2020-11-05] MEDS ORDERED: SUCR1ORA5 PO (15:56)
[2020-11-05] MEDS ORDERED: PANT40TA6 PO (15:56)
[2020-11-05] MEDS ORDERED: THIA100T67 PO (16:02)
[2020-11-05 19:51] VITALS: BP 124/79
[2020-11-05] MEDS: DOXEPIN 25 MG CAPSULE PO SCH (20:17)
[2020-11-05] MEDS: ATORVASTATIN 10 MG TABLET PO SCH (20:17)
[2020-11-05] MEDS: LORazepam 1MG TABLET PO PRN (21:46)
[2020-11-06] MEDS: HEPARIN 5,000 UNITS/ML, 1ML SQ SCH ×3 (00:10→16:00)
[2020-11-06 01:11] VITALS: BP 144/82
[2020-11-06] MEDS: LORazepam 1MG TABLET PO PRN ×2 (02:13→21:52)
[2020-11-06 07:21] VITALS: BP 131/81
[2020-11-06] MEDS: FLUOXETINE HCL 20 MG CAPSULE PO SCH (08:09)
[2020-11-06] MEDS: SUCRALFATE 1 GM/10 ML UDC PO SCH ×4 (08:09→20:00)
[2020-11-06] MEDS: MULTIVITAMIN 1 TABLET PO SCH (08:09)
[2020-11-06] MEDS: BUSPIRONE 10 MG TABLET PO SCH ×3 (08:09→20:00)
[2020-11-06] MEDS: FERROUS SULFATE 325 MG TABLET PO SCH (08:10)
[2020-11-06] MEDS: THIAMINE 100MG TABLET PO SCH (08:10)
[2020-11-06] MEDS: FOLIC ACID 1 MG TABLET PO SCH ×2 (08:10→08:14)
[2020-11-06] MEDS: CHOLECALCIFEROL 1,000 UNIT TABLET PO SCH (08:10)
[2020-11-06] MEDS: SENNA/DOCUSATE TABLET PO SCH (08:10)
[2020-11-06] MEDS: SODIUM CHLORIDE 1 GM TABLET PO SCH ×2 (08:10→20:00)
[2020-11-06] MEDS: LISINOPRIL 20 MG TABLET PO SCH (08:10)
[2020-11-06] MEDS: PANTOPRAZOLE 40 MG IV IVPush SCH (11:53)
[2020-11-06 12:14] VITALS: BP 154/78
[2020-11-06 19:02] VITALS: BP 116/73
[2020-11-06] MEDS: ATORVASTATIN 10 MG TABLET PO SCH (20:00)
[2020-11-06] MEDS: DOXEPIN 25 MG CAPSULE PO SCH (20:00)
[2020-11-07] MEDS: PANTOPRAZOLE 40 MG IV IVPush SCH ×2 (00:14→11:21)
[2020-11-07] MEDS: HEPARIN 5,000 UNITS/ML, 1ML SQ SCH ×3 (00:15→17:00)
[2020-11-07 00:37] VITALS: BP 134/80
[2020-11-07] MEDS: LORazepam 1MG TABLET PO PRN ×2 (06:22→15:06)
[2020-11-07 06:25] LABS: CHLORIDE 102 mmol/L (98-107)
[2020-11-07 06:30] LABS: ANION GAP 4 mmol/L (5-15); CALCIUM 8.3 mg/dL (8.5-10.1); CREATININE 0.67 mg/dL (0.55-1.02)
[2020-11-07] MEDS: SUCRALFATE 1 GM/10 ML UDC PO SCH ×4 (07:00→21:31)
[2020-11-07 07:07] VITALS: BP 146/85
[2020-11-07] MEDS: MULTIVITAMIN 1 TABLET PO SCH (08:35)
[2020-11-07] MEDS: BUSPIRONE 10 MG TABLET PO SCH ×3 (08:35→21:31)
[2020-11-07] MEDS: FLUOXETINE HCL 20 MG CAPSULE PO SCH (08:36)
[2020-11-07] MEDS: THIAMINE 100MG TABLET PO SCH (08:36)
[2020-11-07] MEDS: SODIUM CHLORIDE 1 GM TABLET PO SCH ×2 (08:36→21:31)
[2020-11-07] MEDS: SENNA/DOCUSATE TABLET PO SCH (08:37)
[2020-11-07] MEDS: LISINOPRIL 20 MG TABLET PO SCH (08:37)
[2020-11-07] MEDS: CHOLECALCIFEROL 1,000 UNIT TABLET PO SCH (08:38)
[2020-11-07] MEDS: FOLIC ACID 1 MG TABLET PO SCH ×2 (08:38)
[2020-11-07] MEDS: FERROUS SULFATE 325 MG TABLET PO SCH (08:38)
[2020-11-07 12:12] VITALS: BP 119/75
[2020-11-07] MEDS: PANTOPRAZOLE 40MG TABLET PO SCH (16:13)
[2020-11-07 19:24] VITALS: BP 152/90
[2020-11-07] MEDS: ATORVASTATIN 10 MG TABLET PO SCH (21:31)
[2020-11-07] MEDS: DOXEPIN 25 MG CAPSULE PO SCH (21:31)
[2020-11-07] MEDS ORDERED: MELATONIN 5 MG TABLET PO PRN (23:30)
[2020-11-08] MEDS: HEPARIN 5,000 UNITS/ML, 1ML SQ SCH ×2 (00:28→08:47)
[2020-11-08 01:03] VITALS: BP 134/83
[2020-11-08] MEDS: SUCRALFATE 1 GM/10 ML UDC PO SCH ×2 (05:41→10:50)
[2020-11-08] MEDS: PANTOPRAZOLE 40MG TABLET PO SCH (05:41)
[2020-11-08] MEDS: SENNA/DOCUSATE TABLET PO SCH (08:44)
[2020-11-08] MEDS: MULTIVITAMIN 1 TABLET PO SCH (08:44)
[2020-11-08] MEDS: THIAMINE 100MG TABLET PO SCH (08:44)
[2020-11-08] MEDS: SODIUM CHLORIDE 1 GM TABLET PO SCH (08:44)
[2020-11-08] MEDS: FERROUS SULFATE 325 MG TABLET PO SCH (08:45)
[2020-11-08] MEDS: FLUOXETINE HCL 20 MG CAPSULE PO SCH (08:45)
[2020-11-08] MEDS: FOLIC ACID 1 MG TABLET PO SCH ×2 (08:45→09:00)
[2020-11-08] MEDS: LISINOPRIL 20 MG TABLET PO SCH (08:45)
[2020-11-08] MEDS: BUSPIRONE 10 MG TABLET PO SCH (08:45)
[2020-11-08] MEDS: CHOLECALCIFEROL 1,000 UNIT TABLET PO SCH (08:46)
[2020-11-08 09:28] VITALS: BP 105/68
[2020-11-08] MEDS: LORazepam 1MG TABLET PO PRN (10:51)
[2020-11-08 13:35] VITALS: BP 114/70
== END 2020-11-08 14:12 | disposition home or self-care (01) | DRG 57 ==
LOC: ED 19:19 → EDIP 20:21 → 4NE 21:58 → 3N 11-03 07:37
PROVIDERS: ADMIT Family Medicine; ATTEND Internal Medicine
DX: G31.2 Degeneration of nervous system due to alcohol (principal); E87.1 Hypo-osmolality and hyponatremia; F10.20 Alcohol dependence, uncomplicated; T43.015A Adverse effect of tricyclic antidepressants, initial encounter; K20.90 Esophagitis, unspecified without bleeding; D64.9 Anemia, unspecified; E11.9 Type 2 diabetes mellitus without complications; E78.5 Hyperlipidemia, unspecified; E86.0 Dehydration; E87.6 Hypokalemia; F32.9 Major depressive disorder, single episode, unspecified; F41.1 Generalized anxiety disorder; I11.9 Hypertensive heart disease without heart failure; K29.70 Gastritis, unspecified, without bleeding; K70.9 Alcoholic liver disease, unspecified; G62.9 Polyneuropathy, unspecified; Z87.891 Personal history of nicotine dependence; Z79.899 Other long term (current) drug therapy; Z79.891 Long term (current) use of opiate analgesic; Z79.01 Long term (current) use of anticoagulants
CPT/HCPCS: 36415; 70450; 80048; 80053; 80307; 80320; 81003; 82140; 82436; 83690; 83735; 83930; 83935; 84100; 84133; 84295; 84300; 84443; 84484; 85025; 93005; 93306; 96374; G0378; J1644; J2550; J3480; J7042; Q0162; C9113; G0480; J3475; J7030; J7040; J7120; Q0163

== ENCOUNTER 2020-11-17 14:27 | Emergency (ER) | payer MEDICAID, MEDICARE ==
[~2020-11-17] VITALS: Ht 160 cm; Wt 59.1 kg
[~2020-11-17 14:27] MED LIST changes: +ATOR10TA9 PO; +CHOL20009 PO; +DOXE25CA PO; +FERR324T5 PO; +PANT40TA6 PO; -POTASSIUM CHLORIDE 20 MEQ PACKET PO ONE; +SUCR1ORA5 PO
[2020-11-17 15:37] LABS: ALANINE AMINOTRANSFERASE 30 U/L (12-78); ALBUMIN 3.3 g/dL (3.4-5.0); ANION GAP 6 mmol/L (5-15); CALCIUM 8.5 mg/dL (8.5-10.1); CHLORIDE 100 mmol/L (98-107); CREATININE 0.75 mg/dL (0.55-1.02)
[2020-11-17 15:40] LABS: ALKALINE PHOSPHATASE 77 U/L (45-117); BILIRUBIN,TOTAL 0.5 mg/dL (0.2-1.0); TOTAL PROTEIN 6.3 g/dL (6.4-8.2)
[2020-11-17 15:49] LABS: BASOPHILS % (AUTO) 1 % (0-1); EOSINOPHILS % (AUTO) 0 % (1-7); LYMPHOCYTES % (AUTO) 14 % (22-44); MEAN CORPUSCULAR HEMOGLOBIN 30.1 pg (27.0-34.8); MEAN CORPUSCULAR HGB CONC 33.8 g/dL (32.4-35.8); MEAN PLATELET VOLUME 6.3 fL (7.4-10.4); MONOCYTES % (AUTO) 7 % (2-9); NEUTROPHILS % (AUTO) 78 % (42-75); PLATELET COUNT 494 x10^3/uL (130-400); RED BLOOD COUNT 2.98 x10^6/uL (3.82-5.3); RED CELL DISTRIBUTION WIDTH 14.3 % (9.6-15.2)
--- NOTE | 2020-11-17 15:52 | NUR ---
pt in hospital gown and on cardiac and vitals monitors. pt able to get out of bed on her own. pt able to stand steadily by bed. pt able to walk 30ft steadily on her own. pt stated she does not use walker or cane at home. pt unable to void in sample cup, stated she is incontinent and can't get the cup under her fast enough. erp okay'd to do straight cath. pt tolerated procedure well. urine walked to lab. call light within reach. will continue to monitor.
[2020-11-17 15:58] LABS: MICROSCOPIC NOT IND
[2020-11-17 16:00] VITALS: BP 168/107
== END 2020-11-17 17:11 | disposition home or self-care (01) ==
LOC: ED 15:37
DX: R42 Dizziness and giddiness (principal); I10 Essential (primary) hypertension; E11.40 Type 2 diabetes mellitus with diabetic neuropathy, unspecified
CPT/HCPCS: 36415; 70450; 80053; 81003; 82962; 83735; 85025; 93005; 99285

== ENCOUNTER 2021-01-05 07:10 | Inpatient (IN) | payer MEDICARE, MEDICAID ==
[~2021-01-05] VITALS: Ht 165.1 cm; Wt 54.5 kg
--- NOTE | 2021-01-05 07:27 | NUR ---
bib AMB from home. pt called EMS when she started feeling dizzy, short of breath and nauseous. pt states she usually drinks ETOH to calm her nerves and anxiety. pt hypertensive on AMB and 206/94 in room. given versed in AMB for anxiety pt states she has been feeling dizzy on and off for a long time (weeks) pt arrives to room after versed in AMB, pt ambulates to bed - states she is no longer dizzy and all complaints are better. pt resting in bed. blood pressure slowly improving after breating exercises. pt watching TV, appears in no acute distress.
--- NOTE | 2021-01-05 07:52 | NUR ---
pt very anxious in bed. having pt doing breathing exercises but insists she needs anxiety medication to calm down. let MD know.
--- NOTE | 2021-01-05 08:15 | NUR ---
pt unhooked self and walked out of room stating she wanted to leave. helped pt call brother. pt was unable to reach brother so agreed to stay.
[2021-01-05 08:30] LABS: MEAN CORPUSCULAR HEMOGLOBIN 26.7 pg (27.0-34.8); RED BLOOD COUNT 4.42 x10^6/uL (3.82-5.3)
--- NOTE | 2021-01-05 08:30 | NUR ---
pt to CT
[2021-01-05 08:31] LABS: BASOPHILS % (AUTO) 0 % (0-1); EOSINOPHILS % (AUTO) 0 % (1-7); LYMPHOCYTES % (AUTO) 5 % (22-44); MEAN PLATELET VOLUME 6.9 fL (7.4-10.4); MONOCYTES % (AUTO) 2 % (2-9); NEUTROPHILS % (AUTO) 93 % (42-75); PLATELET COUNT 574 x10^3/uL (130-400); RED CELL DISTRIBUTION WIDTH 16.7 % (9.6-15.2)
[2021-01-05 08:39] LABS: ANION GAP 21 mmol/L (5-15); CHLORIDE 98 mmol/L (98-107); CREATININE 0.93 mg/dL (0.55-1.02)
[2021-01-05 08:40] LABS: ALANINE AMINOTRANSFERASE 52 U/L (12-78)
[2021-01-05 08:42] LABS: SALICYLATE LEVEL < 1.7 mg/dL (2.8-20.0)
[2021-01-05 08:44] LABS: ALKALINE PHOSPHATASE 128 U/L (45-117); BILIRUBIN,TOTAL 1.1 mg/dL (0.2-1.0); TOTAL PROTEIN 8.3 g/dL (6.4-8.2); TROPONIN I < 0.015 ng/mL (0.000-0.045)
--- NOTE | 2021-01-05 08:50 | NUR ---
pt returns to room. vss
--- NOTE | 2021-01-05 09:42 | NUR ---
URINE COLLECTED VIA STRAIGHT CATH
[2021-01-05 09:56] LABS: MICROSCOPIC AUTO
[2021-01-05] MEDS ORDERED: LORazepam 2 MG/ML, 1ML IVPush ONE (10:00)
[2021-01-05] MEDS ORDERED: SODIUM CHLORIDE 0.9% 1,000ML IVBOLUS ONE (10:00)
[2021-01-05] MEDS ORDERED: LORazepam 2 MG/ML, 1ML ONE ×2 (10:09→15:04)
--- NOTE | 2021-01-05 12:56 | NUR ---
PT SLEEPING IN BED. VSS
--- NOTE | 2021-01-05 14:00 | NUR ---
BREAK RN NOTE: PT. IS WATCHING TV WITHOUT CONCERNS. NS BOLUS IS INFUSING. CALL LIGHT IN PLACE. MD NOTIFIED OF THE PT.'S BP.
--- NOTE | 2021-01-05 14:26 | NUR ---
BREAK NOTE: PT. WAS MEDICATED FOR ELEVATED BY ORDERED. PT. WAS INFORMED THAT SHE COULDN'T GET UP AND THAT SHE NEEDS THE ENTIRE BAG OF IV FLUIDS. PT. WAS INSTRUCTED TO NOT GET UP WITH UNDERSTANDING VERBALIZED.
--- NOTE | 2021-01-05 14:28 | NUR ---
CORRECTION: PT. WAS MEDICATED FOR ELEVATED BP, NOT BY.
[2021-01-05] MEDS ORDERED: THIAMINE 100MG TABLET PO ONE (15:00)
[2021-01-05] MEDS ORDERED: LORazepam 2 MG/ML, 1ML IVPush PRN (15:00)
[2021-01-05] MEDS ORDERED: THIAMINE 100MG TABLET ONE (15:04)
[2021-01-05 16:01] VITALS: BP 160/68
[2021-01-05 16:14] VITALS: BP 160/68
[2021-01-05] MEDS ORDERED: LABETALOL 5MG/ML, 20ML IVPush PRN (18:30)
[2021-01-05] MEDS ORDERED: ONDANSETRON ODT 4 MG PO PRN (18:30)
[2021-01-05] MEDS ORDERED: ONDANSETRON 2MG/ML, 2ML IVPush PRN (18:30)
[2021-01-05] MEDS ORDERED: ACETAMINOPHEN 325 MG TABLET PO PRN (18:30)
[2021-01-05] MEDS ORDERED: GABAPENTIN 300 MG CAPSULE PO PRN (18:30)
[2021-01-05] MEDS ORDERED: POLYETHYLENE GLYCOL 17 GM PACKET PO PRN (18:30)
[2021-01-05] MEDS ORDERED: HYDROcodone/APAP 5/325 TABLET PO PRN (18:30)
[2021-01-05] MEDS ORDERED: DOCUSATE 100 MG CAPSULE PO PRN (18:30)
[2021-01-05] MEDS ORDERED: MELATONIN 5 MG TABLET PO PRN (18:30)
[2021-01-05] MEDS ORDERED: BISACODYL 10 MG SUPP PR PRN (18:30)
[2021-01-05] MEDS: HEPARIN 5,000 UNITS/ML, 1ML SQ SCH (18:43)
[2021-01-05] MEDS ORDERED: LORazepam 2 MG/ML, 1ML IV PRN ×5 (19:00)
[2021-01-05 20:18] VITALS: BP 163/83
[2021-01-05] MEDS: LACTATED RINGERS 1,000 ML IV SCH (20:19)
[2021-01-05] MEDS: LORazepam 0.5MG TABLET PO SCH (20:20)
[2021-01-05] MEDS: MAGNESIUM CHLORIDE 64 MG TABLET.DR PO SCH (20:20)
[2021-01-05] MEDS: DOXEPIN 25 MG CAPSULE PO SCH (20:20)
[2021-01-05] MEDS: SODIUM CHLORIDE 1 GM TABLET PO SCH (20:20)
[2021-01-06 01:32] VITALS: BP 150/75
[2021-01-06] MEDS: HEPARIN 5,000 UNITS/ML, 1ML SQ SCH ×3 (03:30→18:05)
[2021-01-06 04:02] LABS: AMPHETAMINE SCREEN, URINE Negative (Negative); BARBITURATE SCREEN, URINE Negative (Negative); BENZODIAZEPINE SCREEN, URINE Positive (Negative); CANNABINOID SCREEN, URINE Negative (Negative); COCAINE SCREEN, URINE Negative (Negative); METHADONE SCREEN, URINE Negative (Negative); OPIATE SCREEN, URINE Negative (Negative)
[2021-01-06] MEDS: LORazepam 0.5MG TABLET PO SCH ×4 (05:10→21:38)
[2021-01-06 06:12] LABS: BASOPHILS % (AUTO) 1 % (0-1); EOSINOPHILS % (AUTO) 0 % (1-7); LYMPHOCYTES % (AUTO) 17 % (22-44); MEAN CORPUSCULAR HEMOGLOBIN 27.1 pg (27.0-34.8); MEAN CORPUSCULAR HGB CONC 32.9 g/dL (32.4-35.8); MEAN PLATELET VOLUME 7.1 fL (7.4-10.4); MONOCYTES % (AUTO) 11 % (2-9); NEUTROPHILS % (AUTO) 70 % (42-75); PLATELET COUNT 384 x10^3/uL (130-400); RED BLOOD COUNT 3.89 x10^6/uL (3.82-5.3); RED CELL DISTRIBUTION WIDTH 16.9 % (9.6-15.2)
[2021-01-06 06:26] LABS: ALBUMIN 2.8 g/dL (3.4-5.0); ANION GAP 6 mmol/L (5-15); CALCIUM 8.4 mg/dL (8.5-10.1); CHLORIDE 104 mmol/L (98-107)
[2021-01-06 06:35] LABS: ALANINE AMINOTRANSFERASE 33 U/L (12-78); ALKALINE PHOSPHATASE 96 U/L (45-117); CHOL/HDL RATIO 2.1; CHOLESTEROL, TOTAL 188 mg/dL (140-239); CREATININE 0.62 mg/dL (0.55-1.02); HDL CHOL % 48 % (28-40); HDL CHOLESTEROL (DIRECT) 90 mg/dL (40-60); LDL CHOLESTEROL,CALCULATED 74 mg/dL (54-169); LDL/HDL RATIO 0.8 (0.5-3.0); TOTAL PROTEIN 6.2 g/dL (6.4-8.2); TRIGLYCERIDES 118 mg/dL (50-200); VLDL CHOLESTEROL 24 mg/dL (0-25)
[2021-01-06] MEDS: PANTOPRAZOLE 40MG TABLET PO SCH (07:37)
[2021-01-06 08:22] VITALS: BP 161/83
[2021-01-06] MEDS: MULTIVITAMINS/MINERALS TABLET PO SCH (08:37)
[2021-01-06] MEDS: FLUOXETINE HCL 20 MG CAPSULE PO SCH (08:37)
[2021-01-06] MEDS: LACTATED RINGERS 1,000 ML IV SCH (08:37)
[2021-01-06] MEDS: FOLIC ACID 1 MG TABLET PO SCH (08:37)
[2021-01-06] MEDS: SODIUM CHLORIDE 1 GM TABLET PO SCH ×2 (08:37→21:37)
[2021-01-06] MEDS: MAGNESIUM CHLORIDE 64 MG TABLET.DR PO SCH ×3 (08:37→21:37)
[2021-01-06] MEDS: LISINOPRIL 20 MG TABLET PO SCH (08:38)
[2021-01-06] MEDS ORDERED: THIAMINE 100 MG in DEXTROSE 5% 50 ML IVPB SCH (09:00)
[2021-01-06] MEDS ORDERED: POTASSIUM CHLORIDE 40 MEQ in SODIUM CHLORIDE 0.9% 500 ML IV ONE (09:30)
[2021-01-06] MEDS: THIAMINE 100MG TABLET PO SCH (09:41)
[2021-01-06] MEDS: INSULIN LISPRO 100 UNITS/ML, PEN SQ-INSULIN SCH ×3 (12:19→21:37)
[2021-01-06 14:05] VITALS: BP 146/83
[2021-01-06 14:21] VITALS: BP 151/89
[2021-01-06 14:22] VITALS: BP 147/88
[2021-01-06 18:41] VITALS: BP 137/79
[2021-01-06] MEDS: DOXEPIN 25 MG CAPSULE PO SCH (21:38)
[2021-01-07 01:22] VITALS: BP 140/80
[2021-01-07] MEDS: LACTATED RINGERS 1,000 ML IV SCH ×2 (03:02→15:15)
[2021-01-07] MEDS: LORazepam 0.5MG TABLET PO SCH ×4 (05:37→21:32)
[2021-01-07] MEDS: HEPARIN 5,000 UNITS/ML, 1ML SQ SCH ×3 (05:37→21:31)
[2021-01-07 06:13] LABS: BASOPHILS % (AUTO) 1 % (0-1); EOSINOPHILS % (AUTO) 2 % (1-7); LYMPHOCYTES % (AUTO) 27 % (22-44); MEAN CORPUSCULAR HGB CONC 32.6 g/dL (32.4-35.8); MEAN PLATELET VOLUME 7.4 fL (7.4-10.4); MONOCYTES % (AUTO) 11 % (2-9); NEUTROPHILS % (AUTO) 58 % (42-75); PLATELET COUNT 382 x10^3/uL (130-400); RED BLOOD COUNT 4.11 x10^6/uL (3.82-5.3); RED CELL DISTRIBUTION WIDTH 16.8 % (9.6-15.2)
[2021-01-07 06:24] LABS: ANION GAP 5 mmol/L (5-15); CALCIUM 8.5 mg/dL (8.5-10.1); CHLORIDE 104 mmol/L (98-107); CREATININE 0.56 mg/dL (0.55-1.02)
[2021-01-07] MEDS: INSULIN LISPRO 100 UNITS/ML, PEN SQ-INSULIN SCH ×4 (07:00→21:00)
[2021-01-07 07:47] VITALS: BP 163/84
[2021-01-07] MEDS: PANTOPRAZOLE 40MG TABLET PO SCH (08:10)
[2021-01-07] MEDS: SODIUM CHLORIDE 1 GM TABLET PO SCH ×2 (08:10→21:32)
[2021-01-07] MEDS: FLUOXETINE HCL 20 MG CAPSULE PO SCH (08:10)
[2021-01-07] MEDS: FOLIC ACID 1 MG TABLET PO SCH (08:10)
[2021-01-07] MEDS: LISINOPRIL 20 MG TABLET PO SCH (08:10)
[2021-01-07] MEDS: MAGNESIUM CHLORIDE 64 MG TABLET.DR PO SCH ×3 (08:10→21:32)
[2021-01-07] MEDS: MULTIVITAMINS/MINERALS TABLET PO SCH (08:10)
[2021-01-07] MEDS: THIAMINE 100MG TABLET PO SCH (08:10)
[2021-01-07] MEDS ORDERED: POTASSIUM PHOSPHATE 22 MEQ in SODIUM CHLORIDE 0.9% 500 ML IV ONE (10:00)
[2021-01-07] MEDS: MECLIZINE 25 MG TABLET PO PRN (13:00)
[2021-01-07 13:23] VITALS: BP 126/78
[2021-01-07 19:29] VITALS: BP 152/89
[2021-01-07] MEDS: DOXEPIN 25 MG CAPSULE PO SCH (21:32)
[2021-01-08 00:58] VITALS: BP 149/90
[2021-01-08] MEDS: HEPARIN 5,000 UNITS/ML, 1ML SQ SCH ×3 (05:21→20:50)
[2021-01-08] MEDS: LORazepam 0.5MG TABLET PO SCH ×4 (05:21→20:50)
[2021-01-08 06:02] LABS: CHLORIDE 104 mmol/L (98-107)
[2021-01-08 06:08] LABS: ANION GAP 4 mmol/L (5-15); CALCIUM 8.7 mg/dL (8.5-10.1)
[2021-01-08] MEDS: INSULIN LISPRO 100 UNITS/ML, PEN SQ-INSULIN SCH ×4 (07:56→21:00)
[2021-01-08] MEDS: PANTOPRAZOLE 40MG TABLET PO SCH (07:56)
[2021-01-08 08:00] VITALS: BP 164/92
[2021-01-08] MEDS ORDERED: POTASSIUM CHLORIDE 20 MEQ TAB.ER.PRT PO ONE (08:30)
[2021-01-08] MEDS: THIAMINE 100MG TABLET PO SCH (09:37)
[2021-01-08] MEDS: FLUOXETINE HCL 20 MG CAPSULE PO SCH (09:37)
[2021-01-08] MEDS: FOLIC ACID 1 MG TABLET PO SCH (09:37)
[2021-01-08] MEDS: MULTIVITAMINS/MINERALS TABLET PO SCH (09:37)
[2021-01-08] MEDS: LISINOPRIL 20 MG TABLET PO SCH (09:37)
[2021-01-08] MEDS: MAGNESIUM CHLORIDE 64 MG TABLET.DR PO SCH ×2 (09:37→18:01)
[2021-01-08] MEDS: SODIUM CHLORIDE 1 GM TABLET PO SCH ×2 (09:37→20:50)
[2021-01-08] MEDS: MECLIZINE 25 MG TABLET PO PRN (11:53)
[2021-01-08] MEDS ORDERED: GADOTERATE 5 MMOL/10ML SYR ONE (12:27)
[2021-01-08] MEDS: MECLIZINE 25 MG TABLET PO SCH ×2 (18:01→20:50)
[2021-01-08 20:08] VITALS: BP 148/93
[2021-01-08 20:10] VITALS: BP_SYST 138; BP_SYST 154; BP_DIAS 89; BP_DIAS 98
[2021-01-08] MEDS: DOXEPIN 25 MG CAPSULE PO SCH (20:50)
[2021-01-08] MEDS ORDERED: PANT40TA6 PO (21:47)
[2021-01-08] MEDS ORDERED: MELA5TAB14 PO (21:47)
[2021-01-08] MEDS ORDERED: LORA-446 PO (21:47)
[2021-01-08] MEDS ORDERED: MECL-101 PO (21:47)
[2021-01-08] MEDS ORDERED: THIA100T67 PO (21:47)
[2021-01-08] MEDS ORDERED: FOLI1TAB32 PO (21:47)
[2021-01-08] MEDS ORDERED: MULT-482 PO (21:47)
[2021-01-09 01:20] VITALS: BP_SYST 127; BP_SYST 132; BP_DIAS 86; BP_DIAS 89
[2021-01-09 01:21] VITALS: BP 147/92
[2021-01-09 04:41] LABS: ANION GAP 4 mmol/L (5-15); CALCIUM 8.8 mg/dL (8.5-10.1); CHLORIDE 102 mmol/L (98-107); CREATININE 0.62 mg/dL (0.55-1.02)
[2021-01-09] MEDS: HEPARIN 5,000 UNITS/ML, 1ML SQ SCH (06:23)
[2021-01-09] MEDS: MECLIZINE 25 MG TABLET PO SCH ×2 (06:23→12:27)
[2021-01-09 07:15] VITALS: BP 151/89
[2021-01-09] MEDS: INSULIN LISPRO 100 UNITS/ML, PEN SQ-INSULIN SCH ×2 (08:05→12:28)
[2021-01-09] MEDS: MULTIVITAMINS/MINERALS TABLET PO SCH (09:03)
[2021-01-09] MEDS: LISINOPRIL 20 MG TABLET PO SCH (09:03)
[2021-01-09] MEDS: PANTOPRAZOLE 40MG TABLET PO SCH (09:03)
[2021-01-09] MEDS: FOLIC ACID 1 MG TABLET PO SCH (09:03)
[2021-01-09] MEDS: FLUOXETINE HCL 20 MG CAPSULE PO SCH (09:03)
[2021-01-09] MEDS: LORazepam 0.5MG TABLET PO SCH (09:03)
[2021-01-09] MEDS: SODIUM CHLORIDE 1 GM TABLET PO SCH (09:03)
[2021-01-09] MEDS: THIAMINE 100MG TABLET PO SCH (09:04)
[2021-01-09] MEDS ORDERED: MECL-101 PO (12:30)
[2021-01-09] MEDS ORDERED: GABA300C PO (12:30)
[2021-01-09] MEDS ORDERED: THIA100T67 PO (12:30)
== END 2021-01-09 13:40 | disposition home or self-care (01) | DRG 641 ==
LOC: ED 07:29 → 4EST 16:26
PROVIDERS: ADMIT Hospitalist; ATTEND Internal Medicine
DX: E86.0 Dehydration (principal); F10.239 Alcohol dependence with withdrawal, unspecified; G31.2 Degeneration of nervous system due to alcohol; E87.2 Acidosis; D72.829 Elevated white blood cell count, unspecified; E11.43 Type 2 diabetes mellitus with diabetic autonomic (poly)neuropathy; E78.5 Hyperlipidemia, unspecified; F32.9 Major depressive disorder, single episode, unspecified; F41.9 Anxiety disorder, unspecified; I10 Essential (primary) hypertension; J32.0 Chronic maxillary sinusitis; K70.9 Alcoholic liver disease, unspecified; M19.90 Unspecified osteoarthritis, unspecified site; Y90.8 Blood alcohol level of 240 mg/100 ml or more; Z79.899 Other long term (current) drug therapy; Z87.891 Personal history of nicotine dependence; I95.1 Orthostatic hypotension
CPT/HCPCS: 36415; 70450; 71045; 72156; 80048; 80053; 80061; 80307; 80320; 80329; 81001; 82140; 82962; 83036; 83735; 84100; 84443; 84484; 85025; 93005; 99285; G0378; J1644; J3480; A9575; G0480; J1815; J2060; J7030; J7040; J7120